=== PATIENT | female | born 1950 | race Caucasian/White ===

== ENCOUNTER 2018-09-13 13:44 | Emergency (ER) | payer MEDICARE ==
[2018-09-13] MEDS ORDERED: Lidocaine 1% with EPINEPHrine 1:100,000 50 ML MDV ONE (13:55)
[2018-09-13] MEDS ORDERED: Diphtheria,Pertussis(Acell),Tetanus Vaccine 0.5 ML SDV IM ONE (14:20)
[2018-09-13] MEDS ORDERED: Bacitracin Oint 1 GM U/D Packet TOP ONE (14:20)
[2018-09-13] MEDS ORDERED: Lidocaine 1% with EPINEPHrine 1:100,000 50 ML MDV INFILT ONE (14:33)
--- NOTE | 2018-09-13 16:13 | EDM.PDOC ---
ED HPI GENERAL MEDICAL PROBLEM - General Chief Complaint: Laceration Stated Complaint: CUT LEFT WRIST AREA Time Seen by Provider: 09/13/18 13:50 Source of Information: Reports: Patient, Old Records, RN History Limitations: Reports: No Limitations - History of Present Illness INITIAL COMMENTS - FREE TEXT/NARRATIVE: 67 yo female slipped while cutting plastic with a razor knife and stabbed her L forearm. Presents for repair of her laceration and control of the brisk associated bleeding Denies numbness of the hand initially Onset: Today Onset Date: 09/13/18 Onset Time: 14:50 Duration: Minutes: Location: Reports: Upper Extremity, Left Quality: Reports: Ache Severity: Moderate Improves with: Reports: Rest Worsens with: Reports: Movement Context: Reports: Trauma Associated Symptoms: Reports: No Other Symptoms Treatments PICK UP: Reports: Other (see below) (none) - Related Data Allergies Allergy/AdvReac Type Severity Reaction Status Date / Time erythromycin base Allergy Difficulty Verified 09/13/18 14:01 Breathing Home Meds: Home Meds Acetaminophen/HYDROcodone [Tennyson 325-5 MG] 1 tab PO Q4H PRN #14 tab 09/13/18 [Rx ] Past Medical History Musculoskeletal History: Reports: Back Pain, Chronic Psychiatric History: Reports: ADD - Past Surgical History Female Surgical History: Reports: Tubal Ligation Musculoskeletal Surgical History: Reports: Hip Replacement Social & Family History - Tobacco Use Smoking Status *Q: Current Every Day Smoker Years of Tobacco use: 50 Packs/Tins Daily: 0.5 ED ROS GENERAL - Review of Systems Review Of Systems: See Below Constitutional: Reports: No Symptoms HEENT: Reports: No Symptoms Respiratory: Reports: No Symptoms Cardiovascular: Reports: No Symptoms GI/Abdominal: Reports: No Symptoms : Reports: No Symptoms Musculoskeletal: Reports: Arm Pain (L forearm) Skin: Reports: Wound (L forearm laceration) Neurological: Reports: No Symptoms ED EXAM, SKIN/RASH Exam: See Below Exam Limited By: No Limitations General Appearance: Alert, WD/WN, No Apparent Distress Eye Exam: Bilateral Eye: Normal Inspection Peripheral Pulses: 2+: Radial (L) (ulnar artery pulse also intact), Radial (R) ( ulnar artery pulse also intact) Neurological: Alert, Oriented, CN II-XII Intact, Normal Cognition, No Motor/ Sensory Deficits Psychiatric: Normal Affect, Normal Mood Skin: Warm, Dry, Normal Color, No Rash, Wound/Incision (1.9 cm linear L forearm laceration with arteriolar bleeding) Location, Skin: Upper Extremity, Left Characteristics: Linear Associated features: Tenderness, Induration. No: Warmth, Lymphangitis Lymphatic: No Adenopathy ED SKIN PROCEDURES - Laceration/Wound Repair Left Anterior Arm Appearance: Muscle, Linear, Clean Distal NVT: No Tendon Injury, Other (arteriolar bleeder noted) Anesthetic Type: Local Local Anesthesia - Lidocaine (Xylocaine): 1% with EPI Local Anesthetic Volume: 4cc Skin Prep: Saline Exploration/Debridement/Repair: Wound Explored, No Foreign Material Found Closed with: Sutures Suture Size: 4-0 (Vicryl deep layer x 3 interrupted sutures in attempt to tie off the small artery.) # of Sutures: 3 (superficial layer with 4 sutures of simple interrupted and vertical mattress sutures with 5-0 Ethilon. ) Drain Placement: No Sterile Dressing Applied: Nurse Tetanus Status Addressed: Yes Complications: No Progress/Comments: Note: hematoma formed in forearm. Course - Vital Signs Text/Narrative:: Developed a hematoma of her forearm that did seem to stop growing after a few minutes with a pressure dressing. Last Recorded V/S: Last Vital Signs Temp 36.3 C 09/13/18 14:29 Pulse 133 H 09/13/18 14:29 Resp 24 H 09/13/18 14:29 BP 154/100 H 09/13/18 14:29 Pulse Ox 93 L 09/13/18 14:29 - Orders/Labs/Meds Orders: Active Orders 24 hr Category Date Time Status Vaccines to be Administered [RC] PER UNIT ROUTINE Care 09/13/18 14:20 Active Meds: Medications Discontinued Medications Generic Name Dose Route Start Last Admin Trade Name Jesúsq PRN Reason Stop Dose Admin Bacitracin 1 dose 09/13/18 14:20 09/13/18 14:34 Bacitracin Oint 1 Gm TOP 09/13/18 14:21 1 dose ONETIME ONE Administration Diphtheria/Tetanus/Acell Pertussis 0.5 ml 09/13/18 14:20 09/13/18 14:35 Adacel IM 09/13/18 14:21 0.5 ml .ONCE ONE Administration Lidocaine/Epinephrine Confirm 09/13/18 13:55 Xylocaine 1% With Epinephrine 1:100,000 Administered 09/13/18 13:56 Dose 50 ml .ROUTE .STK-MED ONE Lidocaine/Epinephrine 10 ml 09/13/18 14:33 09/13/18 14:35 Xylocaine 1% With Epinephrine 1:100,000 INFILT 09/13/18 14:34 10 ml ONETIME ONE Administration Departure - Departure Time of Disposition: 16:10 Disposition: Home, Self-Care 01 Condition: Fair Clinical Impression: Forearm laceration Qualifiers: Encounter type: initial encounter Laterality: left Qualified Code(s): S51.812A - Laceration without foreign body of left forearm, initial encounter - Discharge Information *PRESCRIPTION DRUG MONITORING PROGRAM REVIEWED*: No *COPY OF PRESCRIPTION DRUG MONITORING REPORT IN PATIENT ALAN: No Instructions: Wound Care, Adult Referrals: PCP,None [Primary Care Provider] - Additional Instructions: Use Tennyson or acetaminophen as needed for pain relief. Elevate and rest the L arm for 24 hrs. Keep an YUSUF on place on that arm. Starting tomorrow clean the wound twice daily with soap and water. Dry. Apply Bacitracin and a new dressing. Recheck in the clinic tomorrow. - My Orders Last 24 Hours: My Active Orders 09/13/18 14:20 Vaccines to be Administered [RC] PER UNIT ROUTINE - Assessment/Plan Last 24 Hours: My Active Orders 09/13/18 14:20 Vaccines to be Administered [RC] PER UNIT ROUTINE
== END 2018-09-13 17:02 | disposition home or self-care (01) ==
LOC: JP.ED 13:44
DX: S51.812A Laceration without foreign body of left forearm, initial encounter (principal); W26.0XXA Contact with knife, initial encounter; Z88.1 Allergy status to other antibiotic agents; Z23 Encounter for immunization; F17.200 Nicotine dependence, unspecified, uncomplicated
CPT/HCPCS: 12031; 90471; 90715; 99282-25; 99283

== ENCOUNTER 2018-11-08 18:40 | Emergency (ER) | payer MEDICARE, MEDICAID ==
--- NOTE | 2018-11-08 19:01 | EDM.PDOC ---
ED HPI GENERAL MEDICAL PROBLEM - General Chief Complaint: Lower Extremity Injury/Pain Stated Complaint: FALL VIA NORTH Time Seen by Provider: 11/08/18 18:55 Source of Information: Reports: Patient, EMS History Limitations: Reports: No Limitations - History of Present Illness INITIAL COMMENTS - FREE TEXT/NARRATIVE: Louise is a 67 year old female, presents to the ED today via EMS after falling approximately four feet from a ladder. Patient was putting in window screens when she fell. Patient states she landed on her feet then slowly fell to her side. Patient did not strike her head, denies any neck or back pain. Patient denies any hip pain, patient repots pain to bilateral knees with ambulation. Patient has not taken anything for pain. Onset: Today, Sudden - Related Data Allergies Allergy/AdvReac Type Severity Reaction Status Date / Time erythromycin base Allergy Difficulty Verified 11/08/18 18:51 Breathing Home Meds: Home Meds Fluticasone/Salmeterol [Advair 500-50] 1 ampule INH DAILY 11/08/18 [History] Ipratropium/Albuterol Sulfate [Iprat-Albut 0.5-3(2.5) mg/3 ml] 11/08/18 [ History] Methylphenidate [Ritalin] 1 tab PO DAILY 11/08/18 [History] Metoprolol Tartrate 1 tab PO DAILY 11/08/18 [History] Trandolapril [Mavik] 0.5 tab PO DAILY 11/08/18 [History] Venlafaxine [Effexor] 1 tab PO BEDTIME 11/08/18 [History] Past Medical History Musculoskeletal History: Reports: Back Pain, Chronic Psychiatric History: Reports: ADD - Past Surgical History Female Surgical History: Reports: Tubal Ligation Musculoskeletal Surgical History: Reports: Hip Replacement Review of Systems - Review of Systems Review Of Systems: ROS reveals no pertinent complaints other than HPI. ED EXAM, GENERAL - Physical Exam Exam: See Below Exam Limited By: No Limitations General Appearance: Alert, WD/WN, No Apparent Distress Nose: Normal Inspection Throat/Mouth: Normal Inspection, Normal Oropharynx Head: Atraumatic, Normocephalic Neck: Normal Inspection, Supple, Non-Tender, Full Range of Motion. No: Tender Lateral, Tender Midline Respiratory/Chest: No Respiratory Distress, Lungs Clear, Normal Breath Sounds, No Accessory Muscle Use, Chest Non-Tender Cardiovascular: Normal Peripheral Pulses, No Murmur, Tachycardia Peripheral Pulses: 2+: Dorsalis Pedis (L), Dorsalis Pedis (R) GI/Abdominal: Normal Bowel Sounds, Soft, Non-Tender Back Exam: Normal Inspection. No: Paraspinal Tenderness, Vertebral Tenderness Extremities: Normal Inspection, Normal Range of Motion, Normal Capillary Refill , Other (tenderness to bilateral knees, mild swelling kasi patellar, right worse than left, mild tenderness to mid tib/fib region, no deformity no pain with pelvic rock) Neurological: Alert, Oriented, CN II-XII Intact Psychiatric: Normal Affect, Normal Mood Skin Exam: Warm, Dry, Intact Lymphatic: No Adenopathy Course - Vital Signs Last Recorded V/S: Last Vital Signs Temp 35.2 C 11/08/18 19:12 Pulse 111 H 11/08/18 19:12 Resp 16 11/08/18 19:12 BP 135/91 H 11/08/18 19:12 Pulse Ox 97 11/08/18 19:12 Louise is a 67 year old female, presents to the ED via EMS today with c/o bilateral knee pain and right lower leg pain after falling four feet from her ladder. Please refer to HPI and focused exam. Patient arrives here hemodynamically stable, afebrile, exam reassuring with no spinous process tenderness, mild tenderness and swelling to bilateral knees and right tib/fib tenderness, no deformity or instability on exam. Patient declines any offer for pain medication on arrival. Xrays obtained of bilateral knees and right tib /fib and return negative for any acute fracture. there is a left knee effusion. Patient's family concerns about lower left back/hip region, patient states this hurt prior to fall, mildly tender, xray of pelvis obtained and also negative. Family and patient reassured. Joseph wraps applied to knees for support compression , recommend Tylenol for pain, Percocet for severe pain, narcotic safety and side effects discussed. patient instructed to return with any concerns or worsening symptoms, would like re-evaluated in clinic later this week. Patient and family agreeable to plan of care and patient discharged in stable condition. - Orders/Labs/Meds Orders: Active Orders 24 hr Category Date Time Status Tibia Fibula Rt [CR] Stat Exams 11/08/18 18:55 Taken Meds: Medications Discontinued Medications Generic Name Dose Route Start Last Admin Trade Name Freq PRN Reason Stop Dose Admin Oxycodone HCl 10 mg 11/08/18 19:54 11/08/18 20:00 Oxycodone PO 11/08/18 19:55 10 mg ONETIME ONE Administration Departure - Departure Time of Disposition: 21:00 Disposition: Home, Self-Care 01 Condition: Good Clinical Impression: Sprain of knee, Knee effusion, left Fall from ladder Qualifiers: Encounter type: initial encounter Qualified Code(s): W11.XXXA - Fall on and from ladder, initial encounter - Discharge Information Instructions: Knee Sprain, Adult, [id number], Knee Effusion Referrals: PCP,None [Primary Care Provider] - Forms: ED Department Discharge Additional Instructions: Tylenol for pain as needed. Ibuprofen for pain as needed joseph wraps for swelling and compression Percocet for severe pain. This is a narcotic so do not drive if you take this. Percocet has Tylenol in it as well, do not exceed 4,000 mg of Tylenol in a 24 hour period. - My Orders Last 24 Hours: My Active Orders 11/08/18 18:55 Tibia Fibula Rt [CR] Stat - Assessment/Plan Last 24 Hours: My Active Orders 11/08/18 18:55 Tibia Fibula Rt [CR] Stat
[2018-11-08] MEDS ORDERED: oxyCODONE 5 MG Tab PO ONE (19:54)
--- NOTE | 2018-11-08 20:09 | CRLCR ---
Indication: Injury and pain Technique: Bilateral knee AP, lateral, and sunrise 6 views Comparison: None Findings: Bones: Alignment is normal. No fractures or bone lesions. Joint spaces: Left knee joint effusion is present. Mild arthritic changes are in the knee and patellofemoral joints. Soft tissues: Unremarkable. Impression: There is a left knee joint effusion. Mild bilateral knee osteoarthritis. No other findings to explain pain or swelling. Dictated by Abdulaziz Sharma MD @ Nov 08 2018 8:06PM Signed by Dr. Abdulaziz Sharma @ Nov 08 2018 8:08PM
[2018-11-08] MEDS ORDERED: Ondansetron 4 MG Tab.DIS PO ONE (20:14)
[2018-11-08] MEDS ORDERED: Ondansetron 4 MG Tab.DIS ONE (20:15)
--- NOTE | 2018-11-08 20:15 | CRLCR ---
Indication: Injury and pain Technique: Right tibia and fibula 2 views Comparison: None Findings/Impression: Bones: An acute vertically oriented fracture in the proximal right tibia may extend to the knee joint surface. No other fracture evident. Joint spaces: Unremarkable. Soft tissues: Unremarkable. Dictated by Abdulaziz Sharma MD @ 11/08/2018 8:12:46 PM Dictated by: Abdulaziz Sharma MD @ 11/08/2018 20:12:58 (Electronically Signed)
--- NOTE | 2018-11-08 20:55 | CRLCR ---
HISTORY: Left pelvic pain status post fall. TECHNIQUE: One view of the pelvis. COMPARISON: No prior. FINDINGS: Intact bilateral total hip replacements. There is no acute fracture. No evidence of hardware loosening appreciated. Minor arthrosis of the pubic symphysis. Vascular calcifications. IMPRESSION: 1. Intact bilateral total hip replacements. 2. No acute fracture. Dictated by Rahul Hernandez MD @ 11/08/2018 8:53:40 PM Dictated by: Rahul Hernandez MD @ 11/08/2018 20:53:43 (Electronically Signed)
== END 2018-11-08 21:16 | disposition home or self-care (01) ==
LOC: JP.ED 18:40
DX: S83.92XA Sprain of unspecified site of left knee, initial encounter (principal); W11.XXXA Fall on and from ladder, initial encounter; Z88.1 Allergy status to other antibiotic agents
CPT/HCPCS: 72170; 73562; 73590; 99283; A9270

== ENCOUNTER 2018-11-20 06:03 | Day surgery (SDC) | payer MEDICARE, MEDICAID ==
[2018-11-20] MEDS ORDERED: Nozin Nasal Sanitizer NASBOTH ONE (06:30)
[2018-11-20] MEDS: Lactated Ringers 1,000 ML IV SCH ×3 (06:57→15:39)
[2018-11-20] MEDS ORDERED: Bupivacaine 0.5% 30 ML SDV ONE (07:08)
[2018-11-20] MEDS ORDERED: Albuterol/Ipratropium 3.0-0.5 MG/3 ML Neb Soln NEB ONE (07:14)
[2018-11-20] MEDS ORDERED: fentaNYL 100 MCG/2 ML SDV ONE (07:21)
[2018-11-20] MEDS ORDERED: Propofol 200 MG/20 ML SDV ONE (07:22)
[2018-11-20] MEDS ORDERED: Midazolam 1 MG/ML 2 ML SDV ONE (07:22)
[2018-11-20] MEDS ORDERED: ceFAZolin 1 GM in Premix Bag 1 BAG IV ONE (07:30)
[2018-11-20] MEDS ORDERED: Docusate Sodium 100 MG Cap PO PRN (10:03)
[2018-11-20] MEDS ORDERED: Acetaminophen/oxyCODONE 325-5 MG Tab PO PRN (10:09)
[2018-11-20] MEDS ORDERED: Morphine 2 MG/ML Syringe IVPUSH PRN (10:11)
--- NOTE | 2018-11-20 11:17 | CRLCT ---
INDICATION: Pain after injury. Assess fracture. COMPARISON: Plain film 16 November 2018. TECHNIQUE: Multi detector imaging left knee with axial coronal and sagittal reformats. FINDINGS: Diffuse osteopenia. Moderately large knee lipohemarthrosis. Subtle impaction fracture of the posterior half of the lateral tibial plateau with slight lateral downsloping. Subtle 1 mm or less diastasis across the posterior margin of the fracture. Fracture extends to the posterior margin of the lateral spine with apparent minimal comminution. Linear nondisplaced fracture extends through the mid to medial posterior tibial cortex, extending approximately 3 cm below the joint. Fracture does not appear to enter the proximal tibia fibular joint. No fracture in the femur. Small presumed mineralized fabella. Mild atherosclerotic vascular calcification popliteal artery. IMPRESSION: Minimal lateral downsloping impaction fracture posterior lateral tibial plateau. Osteopenia. Please note that all CT scans at this facility use dose modulation, iterative reconstruction, and/or weight-based dosing when appropriate to reduce radiation dose to as low as reasonably achievable. Dictated by Manuel Roper MD @ Nov 20 2018 11:12AM Signed by Dr. Manuel Roper @ Nov 20 2018 11:16AM
[2018-11-20] MEDS: traMADol 50 MG Tab PO PRN ×2 (15:15→18:52)
[2018-11-20] MEDS: Acetaminophen 325 MG Tab PO PRN ×2 (17:11→20:41)
--- NOTE | 2018-11-20 18:41 | PCM.CONS ---
H&P History of Present Illness - General Date of Service: 11/20/18 Admit Problem/Dx: Admission Diagnosis/Problem Admission Diagnosis/Problem Tibial plateau fracture, right Source of Information: Patient, Provider, RN Notes Reviewed History Limitations: Reports: No Limitations - History of Present Illness Initial Comments - Free Text/Narative: Ms. Randall is a 67-year-old woman who I been asked to see by Dr. Bautista for a hospitalist consult and assistance in medical management during the postoperative period. Earlier today she underwent surgical repair of a right tibial plateau fracture. She has been stable during the initial postoperative period. Denies chest pain or pressure, increased shortness of breath, nausea and vomiting. She does have a known history of COPD and does not use oxygen at home. She continues to smoke approximately one half pack of cigarettes per day. Right Knee Pain Score (Numeric/FACES): 5 - Related Data Allergies/Adverse Reactions: Allergies Allergy/AdvReac Type Severity Reaction Status Date / Time erythromycin base Allergy Difficulty Verified 11/08/18 18:51 Breathing Home Medications: Home Meds Fluticasone/Salmeterol [Advair 500-50] 1 ampule INH BID 11/08/18 [History] Ipratropium/Albuterol Sulfate [Iprat-Albut 0.5-3(2.5) mg/3 ml] 3 ml INH DAILY [History] Metoprolol Tartrate 1 tab PO BID 11/08/18 [History] Trandolapril [Mavik] 2 mg PO DAILY 11/08/18 [History] Venlafaxine [Effexor] 75 mg PO BEDTIME 11/08/18 [History] carBAMazepine [Carbamazepine ER] 400 mg PO BID PRN 11/20/18 [History] Past Medical History HEENT History: Reports: Impaired Vision Other HEENT History: wears glasses Cardiovascular History: Reports: Hypertension, SOB on Exertion Respiratory History: Reports: COPD Gastrointestinal History: Reports: Colon Polyp Genitourinary History: Reports: None [employer]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 [employer] History: Reports: Musculoskeletal History: Reports: Arthritis, Back Pain, Chronic, Fracture, Other (See Below) Other Musculoskeletal History: right tibial platue FX Neurological History: Reports: None, Other (See Below) Other Neuro History: trigeminal neuralgia Psychiatric History: Reports: ADD Endocrine/Metabolic History: Reports: None Hematologic History: Reports: Blood Transfusion(s) Immunologic History: Reports: None Oncologic (Cancer) History: Reports: None Dermatologic History: Reports: Psoriasis - Infectious Disease History Infectious Disease History: Reports: Chicken Pox, Measles, Meningitis, Mumps, Rubella - Past Surgical History Head Surgeries/Procedures: Reports: None HEENT Surgical History: Reports: None Cardiovascular Surgical History: Reports: None Respiratory Surgical History: Reports: None GI Surgical History: Reports: Colonoscopy, Polypectomy Female Surgical History: Reports: Tubal Ligation Neurological Surgical History: Reports: Lumbar Spine Musculoskeletal Surgical History: Reports: None, Hip Replacement Dermatological Surgical History: Reports: None Social & Family History - Family History Musculoskeletal: Reports: Arthritis, Back pain, Chronic Dermatologic: Reports: Psoriasis Oncologic: Reports: Breast, Other (See Below) Other Oncologic Family History: stomach - Tobacco Use Smoking Status *Q: Current Every Day Smoker Years of Tobacco use: 55 Packs/Tins Daily: 0.5 - Caffeine Use Caffeine Use: Reports: Coffee - Recreational Drug Use Recreational Drug Use: No H&P Review of Systems - Review of Systems: Review Of Systems: See Below Pulmonary: Reports: Shortness of Breath. Denies: Wheezing, Pleuritic Chest Pain , Cough, Sputum, Hemoptysis Cardiovascular: Reports: Dyspnea on Exertion. Denies: Chest Pain, Palpitations , Orthopnea, PND, Edema, Lightheadedness Gastrointestinal: Reports: No Symptoms Musculoskeletal: Reports: Other (Right leg pain) Exam - Exam Exam: See Below - Vital Signs Vital Signs: Last Vital Signs Temp 97.2 F 11/20/18 11:45 Pulse 93 11/20/18 12:15 Resp 16 11/20/18 12:15 BP 148/74 H 11/20/18 12:15 Pulse Ox 93 L 11/20/18 12:15 Weight: 105 lb - Exam General: Alert, Oriented, Cooperative, Mild Distress Neck: Supple, Trachea Midline, +2 Carotid Pulse wo Bruit Lungs: Clear to Auscultation, Normal Respiratory Effort, Decreased Breath Sounds Cardiovascular: Regular Rate, Regular Rhythm, Normal S1, Normal S2, Other ( Distant heart sounds). No: Systolic Murmur, Diastolic Murmur GI/Abdominal Exam: Soft, Non-Tender, No Organomegaly, No Distention Extremities: No Pedal Edema Consult PN Assessment/Plan Procedures: Procedures COMP SCREEN MAMMOGRAM ADD-ON (12/28/15) COMPLETE CBC AUTOMATED (08/01/17) COMPUTER DX MAMMOGRAM ADD-ON (01/02/16) CT LOWER EXTREMITY W/O DYE (11/16/18) EMERGENCY DEPT VISIT (11/08/18) EMERGENCY DEPT VISIT (09/13/18) EMERGENCY DEPT VISIT (09/13/18) IMMUNIZATION ADMIN (09/13/18) INTMD RPR S/A/T/EXT 2.5 CM/< (09/13/18) ROUTINE VENIPUNCTURE (08/01/17) SCR MAMMO BI INCL CAD (02/10/18) TDAP VACCINE 7 YRS/> IM (09/13/18) X-RAY EXAM OF KNEE 3 (11/08/18) X-RAY EXAM OF LOWER LEG (11/08/18) X-RAY EXAM OF PELVIS (11/08/18) Problem List Initiated/Reviewed/Updated: Yes My Orders Last 24 Hours: My Active Orders 11/20/18 22:00 Albuterol/Ipratropium [DuoNeb 3.0-0.5 MG/3 ML] 3 ml INH QID Plan: ASSESSMENT AND RECOMMENDATIONS STATUS POST RIGHT TIBIAL PLATEAU FRACTURE REPAIR -Postoperative care per Dr. Bautista COPD-respiratory status is stable from baseline. She currently is using supplemental oxygen, typically at home does not use oxygen but unclear as to whether she may require it. -Supplemental oxygen as needed -Incentive spirometry every hour -DuoNeb's 4 times daily -Continue Advair Diskus Requesting Provider: ALYSSA Date Consult Requested: 11/20/18 Reason for Consult: Postoperative medical management Patient History Reviewed: Yes
[2018-11-20] MEDS: Nicotine 14 MG/24 Hr Patch TRDERM SCH (20:39)
[2018-11-20] MEDS: Albuterol/Ipratropium 3.0-0.5 MG/3 ML Neb Soln INH SCH (20:41)
[2018-11-20] MEDS: Metoprolol Tartrate 50 MG Tab PO SCH (20:44)
[2018-11-20] MEDS: ADVAIR INH SCH (20:56)
[2018-11-20] MEDS: Ibuprofen 600 MG Tab PO PRN (20:58)
[2018-11-20] MEDS ORDERED: Venlafaxine 75 MG Tab PO SCH (21:00)
[2018-11-21] MEDS: Acetaminophen 325 MG Tab PO PRN ×3 (00:20→10:50)
[2018-11-21] MEDS: Lactated Ringers 1,000 ML IV SCH (03:30)
[2018-11-21] MEDS: Ibuprofen 600 MG Tab PO PRN (04:50)
[2018-11-21] MEDS ORDERED: Albuterol/Ipratropium 3.0-0.5 MG/3 ML Neb Soln INH SCH (07:00)
[2018-11-21] MEDS: ADVAIR INH SCH (07:15)
[2018-11-21] MEDS: Albuterol/Ipratropium 3.0-0.5 MG/3 ML Neb Soln INH SCH ×3 (07:15→14:50)
[2018-11-21] MEDS ORDERED: Methylphenidate 10 MG Tab PO SCH ×2 (08:00→12:00)
[2018-11-21] MEDS ORDERED: METHYLPHENIDATE PO SCH (09:00)
[2018-11-21] MEDS ORDERED: FLUTICASONE INH SCH (09:00)
[2018-11-21] MEDS ORDERED: Metoprolol Tartrate 50 MG Tab PO SCH (09:00)
[2018-11-21] MEDS ORDERED: TRANDOLAPRIL PO SCH (09:00)
[2018-11-21] MEDS ORDERED: SALMETEROL INH SCH (09:00)
[2018-11-21] MEDS: Nicotine 14 MG/24 Hr Patch TRDERM SCH (09:25)
[2018-11-21] MEDS: Metoprolol Tartrate 50 MG Tab PO SCH (09:27)
[2018-11-21] MEDS ORDERED: Ibuprofen 600 MG Tab PO PRN (10:56)
--- NOTE | 2018-11-21 14:03 | PCM.CONSN ---
- General Info Date of Service: 11/21/18 Subjective Update: Ms. Randall is been stable since surgery yesterday and denies any exacerbation of her COPD. Level of dyspnea has been stable and oxygen saturations have been within desired range on supplemental oxygen. Functional Status: Reports: Tolerating Diet, Urinating - Review of Systems General: Denies: Fever, Chills Pulmonary: Reports: Shortness of Breath, Wheezing. Denies: Pleuritic Chest Pain , Cough, Sputum, Hemoptysis Cardiovascular: Reports: Dyspnea on Exertion. Denies: Chest Pain, Palpitations , Orthopnea, PND, Edema, Lightheadedness Gastrointestinal: Reports: No Symptoms Skin: Reports: Other (Surgical dressing in place right leg) - Patient Data Vitals - Most Recent: Last Vital Signs Temp 95.7 F 11/21/18 11:55 Pulse 77 11/21/18 11:55 Resp 18 11/21/18 11:55 BP 166/76 H 11/21/18 11:55 Pulse Ox 97 11/21/18 11:55 Weight - Most Recent: 105 lb I&O - Last 24 Hours: Intake & Output 11/20/18 11/21/18 11/21/18 22:59 06:59 14:59 Intake Total 480 1696 Output Total 1300 Balance 480 396 Med Orders - Current: Current Medications Acetaminophen (Tylenol) 650 mg PO Q4H PRN PRN Reason: Pain/Fever Last Admin: 11/21/18 10:50 Dose: 650 mg Albuterol/Ipratropium (Duoneb 3.0-0.5 Mg/3 Ml) 3 ml INH QIDRT [facility] Last Admin: 11/21/18 07:15 Dose: 3 ml Docusate Sodium (Colace) 100 mg PO BID PRN PRN Reason: Constipation Lactated Ringer's (Ringers, Lactated) 1,000 mls @ 75 mls/hr IV ASDIRECTED [facility] Last Admin: 11/21/18 03:30 Dose: 75 mls/hr Ibuprofen (Motrin) 600 mg PO Q6H PRN PRN Reason: Pain Last Admin: 11/21/18 11:04 Dose: 600 mg Methylphenidate HCl (Ritalin) 10 mg PO DAILY@0800 [facility] Last Admin: 11/21/18 09:23 Dose: Not Given Methylphenidate HCl (Ritalin) 20 mg PO Q24H [facility] Metoprolol Tartrate (Lopressor) 50 mg PO BID [facility] Last Admin: 11/21/18 09:27 Dose: 50 mg Morphine Sulfate (Morphine) 2 mg IVPUSH Q1H PRN PRN Reason: Pain (severe 7-10) Last Admin: 11/20/18 13:36 Dose: 2 mg Nicotine (Habitrol) 14 mg TRDERM DAILY [facility] Last Admin: 11/21/18 09:25 Dose: 14 mg Non-Formulary Medication (Trandolapril [Mavik]) 0.5 tab PO DAILY [facility] Oxycodone/Acetaminophen (Percocet 325-5 Mg) 1 - 2 tab PO Q6H PRN PRN Reason: Pain (moderate 4-6) Advair Diskus 500/50 (Inhaler (Ptom)) 0 each INH BIDRT [facility] Last Admin: 11/21/18 07:15 Dose: 1 each Tramadol HCl (Ultram) 50 mg PO Q4H PRN PRN Reason: Pain (mild 1-3) Last Admin: 11/20/18 18:52 Dose: 50 mg Venlafaxine HCl (Effexor) 75 mg PO BEDTIME [facility] Last Admin: 11/20/18 20:45 Dose: 75 mg Discontinued Medications Albuterol/Ipratropium (Duoneb 3.0-0.5 Mg/3 Ml) 3 ml NEB ONETIME ONE Stop: 11/20/18 07:15 Last Admin: 11/20/18 07:21 Dose: 3 ml Albuterol/Ipratropium (Duoneb 3.0-0.5 Mg/3 Ml) 3 ml INH DAILYRT [facility] Bandage/Support Products ( Nasal Language [employer] Chair) 1 applic NASBOTH ONETIME ONE Stop: 11/20/18 06:31 Last Admin: 11/20/18 06:49 Dose: 1 applic Bupivacaine HCl (Marcaine 0.5%) Confirm Administered Dose 30 ml .ROUTE .STK-MED ONE Stop: 11/20/18 07:09 Last Admin: 11/20/18 09:45 Dose: 30 ml Fentanyl (Sublimaze) Confirm Administered Dose 100 mcg .ROUTE .STK-MED ONE Stop: 11/20/18 07:22 Cefazolin Sodium/Dextrose 1 gm (/ Premix) 50 mls @ 100 mls/hr IV ONETIME ONE Stop: 11/20/18 07:59 Last Admin: 11/20/18 08:02 Dose: 100 mls/hr Ibuprofen (Motrin) 600 mg PO Q8H PRN PRN Reason: Pain Last Admin: 11/21/18 04:50 Dose: 600 mg Metoprolol Tartrate (Lopressor) 50 mg PO DAILY [facility] Midazolam HCl (Versed 1 Mg/Ml) Confirm Administered Dose 2 mg .ROUTE .STK-MED ONE Stop: 11/20/18 07:23 Propofol (Diprivan 20 Ml) Confirm Administered Dose 200 mg .ROUTE .STK-MED ONE Stop: 11/20/18 07:23 - Exam Quality Assessment: Supplemental Oxygen, DVT Prophylaxis General: Alert, Oriented, Cooperative, No Acute Distress Lungs: Clear to Auscultation, Normal Respiratory Effort, Decreased Breath Sounds , Wheezing. No: Rales, Rhonchi, Rub Cardiovascular: Regular Rate, Regular Rhythm, No Murmurs GI/Abdominal Exam: Soft, Non-Tender, No Organomegaly, No Distention Extremities: Other (Surgical dressing in place right leg) Consult PN Assessment/Plan Procedures: Procedures COMP SCREEN MAMMOGRAM ADD-ON (12/28/15) COMPLETE CBC AUTOMATED (08/01/17) COMPUTER DX MAMMOGRAM ADD-ON (01/02/16) CT LOWER EXTREMITY W/O DYE (11/16/18) EMERGENCY DEPT VISIT (11/08/18) EMERGENCY DEPT VISIT (09/13/18) EMERGENCY DEPT VISIT (09/13/18) IMMUNIZATION ADMIN (09/13/18) INTMD RPR S/A/T/EXT 2.5 CM/< (09/13/18) ROUTINE VENIPUNCTURE (08/01/17) SCR MAMMO BI INCL CAD (02/10/18) TDAP VACCINE 7 YRS/> IM (09/13/18) X-RAY EXAM OF KNEE 3 (11/08/18) X-RAY EXAM OF LOWER LEG (11/08/18) X-RAY EXAM OF PELVIS (11/08/18) Problem List Initiated/Reviewed/Updated: Yes My Orders Last 24 Hours: My Active Orders 11/20/18 19:00 Nicotine [Habitrol] 14 mg TRDERM DAILY 11/20/18 21:00 Albuterol/Ipratropium [DuoNeb 3.0-0.5 MG/3 ML] 3 ml INH QIDRT 11/21/18 10:56 Ibuprofen [Motrin] 600 mg PO Q6H PRN Plan: ASSESSMENT AND RECOMMENDATIONS STATUS POST RIGHT TIBIAL PLATEAU FRACTURE REPAIR -Postoperative care per Dr. Bautista COPD-respiratory status is stable from baseline. She currently is using supplemental oxygen, typically at home does not use oxygen but unclear as to whether she may require it. -Supplemental oxygen as needed -Incentive spirometry every hour -StanoNeb's 4 times daily -Continue Advair Diskus
[2018-11-21] MEDS ORDERED: TRANDOLAPRIL 4 MG PO SCH (14:45)
--- NOTE | 2018-11-27 15:02 | OR ---
DATE OF PROCEDURE: 11/20/2018 PREOPERATIVE DIAGNOSIS: Depressed lateral tibial plateau fracture, right knee. POSTOPERATIVE DIAGNOSIS: Depressed lateral tibial plateau fracture, right knee. PROCEDURE: Arthroscopically-assisted open reduction and internal fixation, right lateral tibial plateau. ANESTHESIA: Spinal with sedation. INDICATIONS: Louise is a 67-year-old female who sustained a fall from a step- ladder resulting in a depressed lateral tibial plateau fracture. She actually sustained a minimally-depressed left lateral tibial plateau fracture as well. X-ray and CT scan of the right knee revealed articular fragment depressed approximately 6 to 8 mm. She now presents for arthroscopically-assisted reduction, bone grafting, and percutaneous screw fixation. Risks, benefits, and potential complications of the procedure were discussed with the patient and her family. DESCRIPTION OF PROCEDURE: After adequate anesthesia was obtained, the patient was placed supine with a tourniquet about the right upper leg. Right leg was then prepped and draped in a sterile fashion. The leg was exsanguinated and tourniquet inflated to 250 mmHg. Standard inferior, medial and lateral portals were established, and the scope was introduced. A large hemarthrosis was present. This was cleared and flushing with irrigation fluid. The knee was then inspected. The patellofemoral joint revealed minimal degenerative change with some mild softening. Medial compartment showed intact meniscus and articular cartilage in the tibial plateau and femoral condyle. Lateral compartment revealed some mild scuffing on the femoral condyle and a depressed articular fragment in the central portion of the plateau extending posteriorly. Shaver was used to debride the hematoma from the fracture. Meniscus was intact. Steen elevator was then used to free up the fragment. A small incision was then made distal to the knee joint over the lateral metaphysis. This was carried down to the subcutaneous tissues. A small cortical window was then made with an osteotome in the bone of the anterior metaphysis. A bone tamp was placed through the window and position confirmed using fluoroscopy. Visualizing the fracture fragment through the scope, tamp was used to elevate the fragment level with the joint surface. Some mild fragmentation of the articular cartilage was noted along the fracture line, but no major gap was present. Once the fragment had been elevated back up to the joint line, crushed cancellous allograft was packed into the bone tunnel. Maintenance of reduction was confirmed on fluoroscopy as well as by direct visualization with the scope. Working through the posterior aspect of the incision, a guidepin was then placed just beneath the joint line across the plateau and confirmed with fluoroscopy. A second guidepin was placed just posterior to this through a small stab incision. Position of both was confirmed. Maintenance of reduction of the fragment was confirmed with the scope prior to placement of the screws. The guidepins were measured and long threaded cannulated screws were then placed over the guidepin with washers. Compression was obtained across the fracture site and reduction of the fracture was confirmed arthroscopically. The guidepins were removed. Final position was confirmed with fluoroscopy. The joint was inspected once again through the scope and no other abnormalities were identified. Incision was then closed with 2-0 Vicryl and a running 3-0 Monocryl. Port sites were closed with Monocryl. A small stab incision for the percutaneous screw was also closed with Monocryl. Steri-Strips were then applied. Light compressive dressing was then placed after infiltrating incisions with 0.5% Marcaine. The patient tolerated the procedure very well. There were no complications. She was taken from the operating room in a stable condition. Andrea Bautista MD /[id number] PRANAY
--- NOTE | 2019-01-15 13:02 | PCM.DCSUM1 ---
Discharge Summary - Hospital Course Free Text/Narrative:: 68 year ols female with history of a fall resulting in bilateral tibial plateau fractures. The right lateral plateau is depressed and she is admitted for reduction and fixation. she also has a minimally displaced left plateau fracture being treated nonoperatively. Diagnosis: Stroke: No - Discharge Data Discharge Date: 11/21/18 Discharge Disposition: Home, W Home Health Agency 06 Condition: Good - Discharge Diagnosis/Problem(s) (1) Fall from ladder SNOMED Code(s): 54471672 ICD Code: W11.XXXA - FALL ON AND FROM LADDER, INITIAL ENCOUNTER Status: Acute Qualifiers: Encounter type: initial encounter Qualified Code(s): W11.XXXA - Fall on and from ladder, initial encounter (2) Closed fracture of lateral portion of left tibial plateau SNOMED Code(s): 495581513 ICD Code: S82.122A - DISP FX OF LATERAL CONDYLE OF LEFT TIBIA, INIT FOR CLOS FX Status: Acute Qualifiers: Encounter type: subsequent encounter Fracture healing: with routine healing Qualified Code(s): S82.122D - Displaced fracture of lateral condyle of left tibia, subsequent encounter for closed fracture with routine healing (3) Closed fracture of lateral portion of right tibial plateau SNOMED Code(s): 953180662 ICD Code: S82.121A - DISP FX OF LATERAL CONDYLE OF RIGHT TIBIA, INIT FOR CLOS FX Status: Acute Qualifiers: Encounter type: subsequent encounter Fracture healing: with routine healing Qualified Code(s): S82.121D - Displaced fracture of lateral condyle of right tibia, subsequent encounter for closed fracture with routine healing - Patient Summary/Data Operative Procedure(s) Performed: Arthroscoplically assited open reduction and percutaneous fixation of right lateral tibial plateau Consults: Consultations 11/20/18 10:03 PT Evaluation and Treatment [CONS] Routine Please Evaluate and Treat. PT Reason for Consult: Ambulation Pending Discharge: Yes Discharge Disposition: Home w Home Health Special Instructions: TTWB on right , Partial weight bearing on left This query below is only for informational purposes and is not editable. 11/20/18 10:11 Consult to Occupational Therapy [OT Evaluation and Treatment] [CONS] Routine Please Evaluate and Treat. OT Reason for Consult: ADL's Pending Discharge: Yes Discharge Disposition: Home w Home Health Special Instructions: ADLs and adaptive devices This query below is only for informational purposes and is not editable. Admission Diagnosis/Problem: Tibial plateau fracture, right 11/20/18 10:13 Consult to Physician [CONS] Routine Consulting Provider: Julian Kenney Call Completed to Consulting Physician: Yes Reason for Consult: help manage COPD, HTN Date Notified: 11/20/18 Hospital Course: Patient was admitted and underwent surgery to right knee. She tolerated this well and pain was controlled postoperatively. She was seen by PT and instructed on transfers and non-weight bearing on the right. She was comfortable with this and arrangements were made for discharge. - Patient Instructions Diet: Usual Diet as Tolerated Activity: Apply Ice Driving: Do Not Drive Showering/Bathing: September Shower Notify Provider of: Fever, Increased Pain, Swelling and Redness, Drainage, Nausea and/or Vomiting - Discharge Plan *PRESCRIPTION DRUG MONITORING PROGRAM REVIEWED*: No *COPY OF PRESCRIPTION DRUG MONITORING REPORT IN PATIENT ALAN: No Home Medications: Home Meds Fluticasone/Salmeterol [Advair 500-50] 1 ampule INH BID 11/08/18 [History] Ipratropium/Albuterol Sulfate [Iprat-Albut 0.5-3(2.5) mg/3 ml] 3 ml INH DAILY [History] Metoprolol Tartrate 1 tab PO BID 11/08/18 [History] Trandolapril [Mavik] 2 mg PO DAILY 11/08/18 [History] Venlafaxine [Effexor] 75 mg PO BEDTIME 11/08/18 [History] carBAMazepine [Carbamazepine ER] 400 mg PO BID PRN 11/20/18 [History] Other Amb Orders: OT Evaluation and Treatment [CONS] Time Frame: 2 Days, Location: None Selected PT Evaluation and Treatment [CONS] Time Frame: 2 Days, Location: None Selected Oxygen Therapy Mode: Room Air Patient Handouts: Displaced Tibial Plateau Fracture Referrals: Andrea Bautista MD [Physician] - - Discharge Summary/Plan Comment DC Time >30 min.: No - Patient Data Vitals - Most Recent: Last Vital Signs Temp 35.4 C 11/21/18 11:55 Pulse 77 11/21/18 11:55 Resp 16 11/21/18 15:00 BP 166/76 H 11/21/18 11:55 Pulse Ox 94 L 11/21/18 15:00 Weight - Most Recent: 47.627 kg Med Orders - Current: Current Medications Discontinued Medications Acetaminophen (Tylenol) 650 mg PO Q4H PRN PRN Reason: Pain/Fever Last Admin: 11/21/18 10:50 Dose: 650 mg Albuterol/Ipratropium (Duoneb 3.0-0.5 Mg/3 Ml) 3 ml NEB ONETIME ONE Stop: 11/20/18 07:15 Last Admin: 11/20/18 07:21 Dose: 3 ml Albuterol/Ipratropium (Duoneb 3.0-0.5 Mg/3 Ml) 3 ml INH DAILYRT [facility] Albuterol/Ipratropium (Duoneb 3.0-0.5 Mg/3 Ml) 3 ml INH QIDRT [facility] Last Admin: 11/21/18 14:50 Dose: Not Given Bandage/Support Products ( Nasal Wheel Truing Machine Tender) 1 applic NASBOTH ONETIME ONE Stop: 11/20/18 06:31 Last Admin: 11/20/18 06:49 Dose: 1 applic Bupivacaine HCl (Marcaine 0.5%) Confirm Administered Dose 30 ml .ROUTE .STK-MED ONE Stop: 11/20/18 07:09 Last Admin: 11/20/18 09:45 Dose: 30 ml Docusate Sodium (Colace) 100 mg PO BID PRN PRN Reason: Constipation Fentanyl (Sublimaze) Confirm Administered Dose 100 mcg .ROUTE .STK-MED ONE Stop: 11/20/18 07:22 Cefazolin Sodium/Dextrose 1 gm (/ Premix) 50 mls @ 100 mls/hr IV ONETIME ONE Stop: 11/20/18 07:59 Last Admin: 11/20/18 08:02 Dose: 100 mls/hr Lactated Ringer's (Ringers, Lactated) 1,000 mls @ 75 mls/hr IV ASDIRECTED [facility] Last Admin: 11/21/18 03:30 Dose: 75 mls/hr Ibuprofen (Motrin) 600 mg PO Q8H PRN PRN Reason: Pain Last Admin: 11/21/18 04:50 Dose: 600 mg Ibuprofen (Motrin) 600 mg PO Q6H PRN PRN Reason: Pain Last Admin: 11/21/18 11:04 Dose: 600 mg Methylphenidate HCl (Ritalin) 10 mg PO DAILY@0800 [facility] Last Admin: 11/21/18 09:23 Dose: Not Given Methylphenidate HCl (Ritalin) 20 mg PO Q24H [facility] Last Admin: 11/21/18 14:49 Dose: Not Given Metoprolol Tartrate (Lopressor) 50 mg PO DAILY [facility] Metoprolol Tartrate (Lopressor) 50 mg PO BID [facility] Last Admin: 11/21/18 09:27 Dose: 50 mg Midazolam HCl (Versed 1 Mg/Ml) Confirm Administered Dose 2 mg .ROUTE .STK-MED ONE Stop: 11/20/18 07:23 Morphine Sulfate (Morphine) 2 mg IVPUSH Q1H PRN PRN Reason: Pain (severe 7-10) Last Admin: 11/20/18 13:36 Dose: 2 mg Nicotine (Habitrol) 14 mg TRDERM DAILY [facility] Last Admin: 11/21/18 09:25 Dose: 14 mg Oxycodone/Acetaminophen (Percocet 325-5 Mg) 1 - 2 tab PO Q6H PRN PRN Reason: Pain (moderate 4-6) Advair Diskus 500/50 (Inhaler (Ptom)) 0 each INH BIDRT [facility] Last Admin: 11/21/18 07:15 Dose: 1 each Mavik 4mg Tab (Ptom) 0 each PO DAILY [facility] Last Admin: 11/21/18 14:50 Dose: Not Given Propofol (Diprivan 20 Ml) Confirm Administered Dose 200 mg .ROUTE .STK-MED ONE Stop: 11/20/18 07:23 Tramadol HCl (Ultram) 50 mg PO Q4H PRN PRN Reason: Pain (mild 1-3) Last Admin: 11/20/18 18:52 Dose: 50 mg Venlafaxine HCl (Effexor) 75 mg PO BEDTIME [facility] Last Admin: 11/20/18 20:45 Dose: 75 mg
== END 2018-11-21 15:39 | disposition home health service (06) ==
LOC: JP.SDS 06:03 → JP.MS 10:03 → JP.SDS 11-21 15:39
PROVIDERS: ATTEND Specialist
DX: S82.141A Displaced bicondylar fracture of right tibia, initial encounter for closed fracture (principal); I10 Essential (primary) hypertension; J44.9 Chronic obstructive pulmonary disease, unspecified; F98.8 Other specified behavioral and emotional disorders with onset usually occurring in childhood and adolescence; F17.210 Nicotine dependence, cigarettes, uncomplicated; W11.XXXA Fall on and from ladder, initial encounter; Z88.1 Allergy status to other antibiotic agents; Z79.51 Long term (current) use of inhaled steroids; Z79.899 Other long term (current) drug therapy
CPT/HCPCS: 27535; 73700; 76000; 94640; 97110; 97162; 97535; A9270; C1713; J0690; J2250; J2270; J2704; J3010; J3490; J7120; 29855; 99202; 99211; J7620-GY

== ENCOUNTER 2019-08-02 05:57 | Emergency (ER) | payer MEDICARE, MEDICAID ==
--- NOTE | 2019-08-02 06:34 | EDM.PDOC ---
ED HPI GENERAL MEDICAL PROBLEM - General Chief Complaint: Neurological Problem Stated Complaint: MEDICAL [facility]IA [facility] Time Seen by Provider: 08/02/19 06:29 Source of Information: Reports: EMS, Family, Other (pt was found unresponsive this am with mouning resperations. Pt was last seem well last evening although family thought she was a little off and not as animated as usual. She did not complain of a headache. ) History Limitations: Reports: No Limitations - History of Present Illness INITIAL COMMENTS - FREE TEXT/NARRATIVE: pt arrived unresponsive. Onset: Today, Other (pt was last well last pm. ) Duration: Hour(s): Location: Reports: Head, Generalized Associated Symptoms: Reports: Other (pt is unresponsive. 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: See EMS Report - Related Data Allergies Allergy/AdvReac Type Severity Reaction Status Date / Time erythromycin base Allergy Difficulty Verified 08/02/19 06:40 Breathing hydrocodone Allergy Swelling Verified 08/02/19 06:40 oxycodone Allergy Swelling Verified 08/02/19 06:40 Home Meds: Home Meds Fluticasone/Salmeterol [Advair 500-50] 1 ampule INH BID 11/08/18 [History] Ipratropium/Albuterol Sulfate [Iprat-Albut 0.5-3(2.5) mg/3 ml] 3 ml INH DAILY [History] Metoprolol Tartrate 1 tab PO BID 11/08/18 [History] Venlafaxine [Effexor] 75 mg PO BEDTIME 11/08/18 [History] trandolapriL [Mavik] 2 mg PO DAILY 11/08/18 [History] carBAMazepine [Carbamazepine ER] 400 mg PO BID PRN 11/20/18 [History] Acetaminophen/Caffeine [Excedrin Tension Headache] 1 - 2 tab PO Q8HR PRN [History] Past Medical History HEENT History: Reports: Impaired Vision Other HEENT History: wears glasses Cardiovascular History: Reports: Hypertension, SOB on Exertion Respiratory History: Reports: COPD Gastrointestinal History: Reports: Colon Polyp Genitourinary History: Reports: None BASKETBALL SCOUT History: Reports: Musculoskeletal History: Reports: Arthritis, Back Pain, Chronic, Fracture, Other (See Below) Other Musculoskeletal History: ORIF right tibial plat 11/20/18 Neurological History: Reports: Other (See Below) Other Neuro History: trigeminal neuralgia Psychiatric History: Reports: ADD Endocrine/Metabolic History: Reports: None Hematologic History: Reports: Blood Transfusion(s) Immunologic History: Reports: None Oncologic (Cancer) History: Reports: None Dermatologic History: Reports: Psoriasis - Infectious Disease History Infectious Disease History: Reports: Chicken Pox, Measles, Meningitis, Mumps, Rubella - Past Surgical History Head Surgeries/Procedures: Reports: None GI Surgical History: Reports: Colonoscopy, Polypectomy Female Surgical History: Reports: Tubal Ligation Neurological Surgical History: Reports: Lumbar Spine Musculoskeletal Surgical History: Reports: Hip Replacement, Other (See Below) Other Musculoskeletal Surgeries/Procedures:: orif right tib palt FX Social & Family History - Family History Family Medical History: Noncontributory Musculoskeletal: Reports: Arthritis, Back pain, Chronic Dermatologic: Reports: Psoriasis Oncologic: Reports: Breast, Other (See Below) Other Oncologic Family History: stomach - Tobacco Use Smoking Status *Q: Current Every Day Smoker Years of Tobacco use: 50 Packs/Tins Daily: 0.5 - Caffeine Use Caffeine Use: Reports: Coffee - Recreational Drug Use Recreational Drug Use: No ED ROS GENERAL - Review of Systems Review Of Systems: See Below Constitutional: Reports: Other (pt is unresponsive. ) HEENT: Reports: No Symptoms Respiratory: Reports: No Symptoms Cardiovascular: Reports: No Symptoms Endocrine: Reports: No Symptoms GI/Abdominal: Reports: No Symptoms Musculoskeletal: Reports: No Symptoms Skin: Reports: No Symptoms Neurological: Reports: Other (pt is unresponsive. She does open her eyes to voice. ) ED EXAM, NEURO - Physical Exam Exam: See Below Text/Narrative:: pt arrived unresponsive. Last seen well last nite. She does respond with opening her eyes with voice. Exam Limited By: No Limitations General Appearance: Other (pt is unresponsive. ) Ears: Normal TMs Nose: Normal Inspection Throat/Mouth: Normal Inspection Head Exam: Atraumatic Neck: Normal Inspection Respiratory/Chest: No Respiratory Distress Cardiovascular: Regular Rate, Rhythm GI/Abdominal: Soft, Non-Tender (Female) Exam: Other ( romo cath) Rectal (Female) Exam: Deferred Neurological: Other (pt is unresponsive last seen well at 7 pm. ) Back Exam: Normal Inspection Extremities: Normal Inspection Course - Vital Signs Last Recorded V/S: Last Vital Signs Temp 36.2 C 08/02/19 06:00 Pulse 83 08/02/19 06:46 Resp 21 H 08/02/19 06:46 BP 174/104 H 08/02/19 06:46 Pulse Ox 95 08/02/19 06:46 - Orders/Labs/Meds Orders: Active Orders 24 hr Category Date Time Status EKG Documentation Completion [RC] ASDIRECTED Care 08/02/19 06:02 Active Romo Catheter Insertion [Insert Urinary Catheter] [OM. Care 08/02/19 06:15 Ordered PC] Q24H Urinary Catheter Assessment [RC] ASDIRECTED Care 08/02/19 06:04 Active Head wo Cont [CT] Stat Exams 08/02/19 06:01 Taken CARBAMAZEPINE(TEGRETOL),S Stat Lab 08/02/19 06:24 Received COMPREHENSIVE METABOLIC PN,CMP [CHEM] Urgent Lab 08/02/19 06:26 Received EKG 12 Lead [EK] Routine Ther 08/02/19 06:02 Ordered Labs: Laboratory Tests 08/02/19 08/02/19 08/02/19 Range/Units 06:20 06:26 06:26 WBC 10.3 (4.5-11.0) K/uL RBC 4.85 (3.30-5.50) M/uL Hgb 14.7 (12.0-15.0) g/dL Hct 46.3 (36.0-48.0) % MCV 96 (80-98) fL MCH 30 (27-31) pg MCHC 32 (32-36) % Plt Count 396 (150-400) K/uL Neut % (Auto) 75 H (36-66) % Lymph % (Auto) 11 L (24-44) % [place] % (Auto) 10 H (2-6) % Eos % (Auto) 3 (2-4) % Baso % (Auto) 1 (0-1) % Urine Color Yellow (YELLOW) Urine Appearance Clear (CLEAR) Urine pH 7.0 (5.0-8.0) Ur Specific [place] 1.020 (1.008-1.030) Urine Protein Negative (NEGATIVE) mg/dL Urine Glucose (UA) Negative (NEGATIVE) mg/dL Urine Ketones Negative (NEGATIVE) mg/dL Urine Occult Blood Negative (NEGATIVE) Urine Nitrite Negative (NEGATIVE) Urine Bilirubin Negative (NEGATIVE) Urine Urobilinogen 0.2 (0.2-1.0) EU/dL Ur Leukocyte Esterase Negative (NEGATIVE) Urine RBC Not seen (0-5) Urine WBC Not seen (0-5) Ur Epithelial Cells Not seen Amorphous Sediment Not seen Urine Bacteria Not seen Urine Mucus Not seen Urine Opiates Screen Negative (NEGATIVE) Ur Oxycodone Screen Negative (NEGATIVE) Urine Methadone Screen Negative (NEGATIVE) Ur Propoxyphene Screen Negative (NEGATIVE) Ur Barbiturates Screen Negative (NEGATIVE) Ur Tricyclics Screen Negative (NEGATIVE) Ur Phencyclidine Scrn Negative (NEGATIVE) Ur Amphetamine Screen Negative (NEGATIVE) U Methamphetamines Scrn Negative (NEGATIVE) Urine MDMA Screen Negative (NEGATIVE) U Benzodiazepines Scrn Negative (NEGATIVE) U Cocaine Metab Screen Negative (NEGATIVE) U Marijuana (THC) Screen Negative (NEGATIVE) Meds: Medications Discontinued Medications Generic Name Dose Route Start Last Admin Trade Name Freq PRN Reason Stop Dose Admin Labetalol HCl 20 mg 08/02/19 06:41 08/02/19 06:46 Normodyne IVPUSH 08/02/19 06:42 20 mg ONETIME ONE Administration Protocol Labetalol HCl Confirm 08/02/19 06:42 08/02/19 06:46 Normodyne Administered 08/02/19 06:43 Not Given Dose 20 mg .ROUTE .STK-MED ONE Nimodipine 60 mg 08/02/19 06:31 08/02/19 06:38 Nimodipine PO 08/02/19 06:32 60 mg ONETIME ONE Administration - Re-Assessments/Exams Free Text/Narrative Re-Assessment/Exam: 08/02/19 06:36 cat scan of the head showed a left frontal intrapra. bleed, 3.1 x 1.9. mild mass affect. Departure - Departure Time of Disposition: 06:37 Disposition: DC/Tfer to Acute Hospital 02 Condition: Fair Clinical Impression: Hemorrhage of left cerebral hemisphere following injury - Discharge Information Referrals: PCP,None [Primary Care Provider] - Forms: ED Department Discharge Care Plan Goals: transfer to [facility]. Sepsis Event Note - Focused Exam Vital Signs: Vital Signs Temp Pulse Resp BP BP Pulse Ox 08/02/19 06:46 83 21 H 174/104 H 95 08/02/19 06:38 184/113 H 08/02/19 06:29 87 24 H 184/113 H 94 L 08/02/19 06:14 74 21 H 174/97 H 92 L 08/02/19 06:00 36.2 C 71 21 H 180/100 H 95 Date Exam was Performed: 08/02/19 Time Exam was Performed: 06:48 - My Orders Last 24 Hours: My Active Orders 08/02/19 06:01 Head wo Cont [CT] Stat 08/02/19 06:02 EKG Documentation Completion [RC] ASDIRECTED EKG 12 Lead [EK] Routine 08/02/19 06:04 Urinary Catheter Assessment [RC] ASDIRECTED 08/02/19 06:15 Romo Catheter Insertion [Insert Urinary Catheter] [OM.PC] Q24H 08/02/19 06:24 CARBAMAZEPINE(TEGRETOL),S Stat 08/02/19 06:26 COMPREHENSIVE METABOLIC PN,CMP [CHEM] Urgent - Assessment/Plan Last 24 Hours: My Active Orders 08/02/19 06:01 Head wo Cont [CT] Stat 08/02/19 06:02 EKG Documentation Completion [RC] ASDIRECTED EKG 12 Lead [EK] Routine 08/02/19 06:04 Urinary Catheter Assessment [RC] ASDIRECTED 08/02/19 06:15 Romo Catheter Insertion [Insert Urinary Catheter] [OM.PC] Q24H 08/02/19 06:24 CARBAMAZEPINE(TEGRETOL),S Stat 08/02/19 06:26 COMPREHENSIVE METABOLIC PN,CMP [CHEM] Urgent
[2019-08-02] MEDS ORDERED: Labetalol 100 MG/20 ML MDV IVPUSH ONE (06:41)
[2019-08-02] MEDS ORDERED: Labetalol 20 MG/4 ML Syringe ONE (06:42)
--- NOTE | 2019-08-03 07:11 | CRLCT ---
Final Report: INDICATION: Unresponsive COMPARISON: None TECHNIQUE: CT examination of the head was performed as axial sections without intravenous contrast. Images were obtained from the vertex of the skull through the skull base. Please note that all CT scans at this facility use dose modulation, iterative reconstruction, and/or weight-based dosing when appropriate to reduce radiation dose to as low as reasonably achievable. FINDINGS: There is cortical and central atrophy. There is intraparenchymal hemorrhage/ hematoma in the deep white matter of the left posterior frontal region. This is located in the deep white matter and measures approximately 3.5 x 1.9 centimeters in its anteroposterior and medial-lateral dimension. This extends cranially approaching the body of the caudate nucleus. There is mild surrounding regional edema but no shift. IMPRESSION: Left intracranial hemorrhage. I discussed the above findings with Dr. Senia Perez at 6:20 he 5 a.m. on Friday, August 02, [address] all [address] scans at this facility use dose modulation, iterative reconstruction, and/or weight-based dosing when appropriate to reduce radiation dose to as low as reasonably achievable. Dictated by Leno Michaels MD @ Aug 02 2019 6:26AM Signed by: Leno Michaels MD @08/02/2019 6:30:09 AM (Electronic Signature) MTDD
== END 2019-08-02 06:50 ==
LOC: JP.ED 05:57
DX: S06.359A Traumatic hemorrhage of left cerebrum with loss of consciousness of unspecified duration, initial encounter (principal); J44.9 Chronic obstructive pulmonary disease, unspecified; I10 Essential (primary) hypertension; Z79.899 Other long term (current) drug therapy; Z88.1 Allergy status to other antibiotic agents; Z88.5 Allergy status to narcotic agent; X58.XXXA Exposure to other specified factors, initial encounter
CPT/HCPCS: 36415; 51702; 70450; 80053; 80156; 80305; 81001; 85025; 93005; 96374; 99285; A9270; J3490

== ENCOUNTER 2019-09-20 11:16 | Emergency (ER) | payer MEDICARE, MEDICAID ==
--- NOTE | 2019-09-20 12:04 | EDM.PDOC ---
ED HPI GENERAL MEDICAL PROBLEM - General Chief Complaint: Upper Extremity Injury/Pain Stated Complaint: RIGHT SHOULDER PAIN Time Seen by Provider: 09/20/19 11:56 Source of Information: Reports: Patient, RN Notes Reviewed History Limitations: Reports: No Limitations - History of Present Illness INITIAL COMMENTS - FREE TEXT/NARRATIVE: 68-year-old female presents emergency department a complaint of right shoulder pain, she has a history of CVA with right-sided weakness she has minimal movement in the right arm she states she rolled over last night significant pain in the right arm the pain now has subsided - Related Data Allergies Allergy/AdvReac Type Severity Reaction Status Date / Time erythromycin base Allergy Difficulty Verified 08/02/19 06:40 Breathing hydrocodone Allergy Swelling Verified 08/02/19 06:40 oxycodone Allergy Swelling Verified 08/02/19 06:40 Home Meds: Home Meds Fluticasone/Salmeterol [Advair 500-50] 1 ampule INH BID 11/08/18 [History] Ipratropium/Albuterol Sulfate [Iprat-Albut 0.5-3(2.5) mg/3 ml] 3 ml INH DAILY [History] Metoprolol Tartrate 1 tab PO BID 11/08/18 [History] Venlafaxine [Effexor] 75 mg PO BEDTIME 11/08/18 [History] trandolapriL [Mavik] 2 mg PO DAILY 11/08/18 [History] carBAMazepine [Carbamazepine ER] 400 mg PO BID PRN 11/20/18 [History] Acetaminophen/Caffeine [Excedrin Tension Headache] 1 - 2 tab PO Q8HR PRN [History] amLODIPine [Norvasc] 10 mg PO DAILY 09/20/19 [History] atorvaSTATin [Lipitor] 10 mg PO BEDTIME 09/20/19 [History] levETIRAcetam [Levetiracetam] 500 mg PO BID 09/20/19 [History] trandolapriL [Trandolapril] 2 mg PO DAILY 09/20/19 [History] Past Medical History HEENT History: Reports: Impaired Vision Other HEENT History: wears glasses Cardiovascular History: Reports: Hypertension, SOB on Exertion Respiratory History: Reports: COPD Gastrointestinal History: Reports: Colon Polyp 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: Musculoskeletal History: Reports: Arthritis, Back Pain, Chronic, Fracture, Other (See Below) Other Musculoskeletal History: ORIF right tibial plat 11/20/18 Neurological History: Reports: CVA, Other (See Below) Other Neuro History: trigeminal neuralgia Psychiatric History: Reports: ADD Hematologic History: Reports: Blood Transfusion(s) Immunologic History: Reports: None Oncologic (Cancer) History: Reports: None Dermatologic History: Reports: Psoriasis - Infectious Disease History Infectious Disease History: Reports: Chicken Pox - Past Surgical History Head Surgeries/Procedures: Reports: None GI Surgical History: Reports: Colonoscopy, Polypectomy Female Surgical History: Reports: Tubal Ligation Neurological Surgical History: Reports: Lumbar Spine Musculoskeletal Surgical History: Reports: Hip Replacement, Other (See Below) Other Musculoskeletal Surgeries/Procedures:: orif right tib palt FX Social & Family History - Family History Family Medical History: Noncontributory Musculoskeletal: Reports: Arthritis, Back pain, Chronic Dermatologic: Reports: Psoriasis Oncologic: Reports: Breast, Other (See Below) Other Oncologic Family History: stomach - Tobacco Use Smoking Status *Q: Current Every Day Smoker Years of Tobacco use: 60 Packs/Tins Daily: 0.5 - Caffeine Use Caffeine Use: Reports: Coffee - Recreational Drug Use Recreational Drug Use: No Review of Systems - Review of Systems Review Of Systems: See Below Constitutional: Reports: No Symptoms Respiratory: Reports: No Symptoms Cardiovascular: Reports: No Symptoms Musculoskeletal: Reports: Shoulder Pain ED EXAM, GENERAL - Physical Exam Exam: See Below Free Text/Narrative:: Examination the right shoulder there is no movement however when I do passive range of motion pain is elicited in the thumb with rotation of her arm above her head I cannot appreciate any obvious deformity radial pulses +2 Exam Limited By: No Limitations General Appearance: Alert, WD/WN, No Apparent Distress Respiratory/Chest: No Respiratory Distress Course - Vital Signs Last Recorded V/S: Last Vital Signs Temp 97.7 F 09/20/19 11:38 Pulse 73 09/20/19 12:30 Resp 16 09/20/19 12:30 BP 149/83 H 09/20/19 12:30 Pulse Ox 95 09/20/19 12:30 Departure - Departure Time of Disposition: 13:04 Disposition: Home, Self-Care 01 Condition: Fair Clinical Impression: Right shoulder pain Qualifiers: Chronicity: acute Qualified Code(s): M25.511 - Pain in right shoulder - Discharge Information Instructions: Shoulder Pain Referrals: Gloria Estrada MD [Primary Care Provider] - Forms: ED Department Discharge Additional Instructions: Continue with your regular medications, please followup with your primary care provider in 3-5 days if not better, please call return to the emergency department with worsening of symptoms. Sepsis Event Note - Evaluation Sepsis Screening Result: No Definite Risk - Focused Exam Vital Signs: Vital Signs Temp Pulse Resp BP Pulse Ox 09/20/19 12:30 73 16 149/83 H 95 09/20/19 12:00 68 16 142/83 H 96 09/20/19 11:38 97.7 F 66 16 168/89 H 94 L 09/20/19 11:36 97.7 F 66 16 168/89 H 94 L Date Exam was Performed: 09/20/19 Time Exam was Performed: 13:04 - Assessment/Plan Plan: Assessment Acuity = acute Site and laterality = right shoulder pain Etiology = unknown Manifestations = none Location of injury = Home Lab values = shoulder x-ray shows no fracture or dislocation Plan I did review shoulder films with her she is pain-free at this time plan is to discharge home follow-up primary care 3 to 5 days if not better This note was dictated using [employer] voice recognition software please call with any questions on syntax or grammar.
--- NOTE | 2019-09-20 12:36 | CR ---
Shoulder Comp Rt CLINICAL HISTORY: Pain FINDINGS: There is no acute fracture or dislocation in the right shoulder. There is moderate spurring at the AC joint. Glenohumeral joint appears intact. Impression: Moderate AC joint spurring No fracture or osseous lesion
== END 2019-09-20 13:21 | disposition home or self-care (01) ==
LOC: JP.ED 11:16
DX: M25.511 Pain in right shoulder (principal); I10 Essential (primary) hypertension; J44.9 Chronic obstructive pulmonary disease, unspecified; F17.210 Nicotine dependence, cigarettes, uncomplicated; Z88.1 Allergy status to other antibiotic agents; Z88.5 Allergy status to narcotic agent; Z79.899 Other long term (current) drug therapy; Z86.73 Personal history of transient ischemic attack (TIA), and cerebral infarction without residual deficits
CPT/HCPCS: 73030-26-RT; 73030-RT; 99281; 99283-25

== ENCOUNTER 2023-10-19 14:15 | Emergency (ER) | payer MEDICARE, MEDICAID ==
[2023-10-19 14:52] LABS: BASOPHILS ABSOLUTE AUTO 0.12 K/uL (0.00-0.10); BASOPHILS PERCENT AUTO 1.5 % (0.1-1.3); EOSINOPHILS ABSOLUTE AUTO 0.18 K/uL (0.00-0.40); EOSINOPHILS PERCENT AUTO 2.2 % (0.0-5.4); HEMATOCRIT 38.1 % (34.3-46.0); HEMOGLOBIN 13.1 g/dL (11.2-15.5); IMMATURE GRAN ABSOLUTE AUTO 0.03 K/uL (0.00-0.23); IMMATURE GRAN PERCENT AUTO 0.4 % (0.0-0.7); LYMPHOCYTES ABSOLUTE AUTO 1.09 K/uL (0.8-3.3); LYMPHOCYTES PERCENT AUTO 13.2 % (11.4-47.7); MEAN CORPUSCULAR HEMOGLOBIN 31.6 pg (31.6-35.5); MEAN CORPUSCULAR HGB CONC 34.4 g/dL (31.6-35.5); MONOCYTES ABSOLUTE AUTO 0.64 K/uL (0.20-0.90); MONOCYTES PERCENT AUTO 7.8 % (3.3-12.6); NEUTROPHILS ABSOLUTE AUTO 6.18 K/uL (1.0-7.6); NEUTROPHILS PERCENT AUTO 74.9 % (40.0-78.1); PLATELET COUNT,PLT 392 K/uL (130-375); RED BLOOD CELL COUNT 4.14 M/uL (3.77-5.24); WHITE BLOOD CELL COUNT,WBC 8.2 K/uL (3.2-11.0)
[2023-10-19 15:14] LABS: ALANINE AMINOTRANSFERASE,ALT 20 U/L (12-78); ALBUMIN 3.3 g/dL (3.4-5.0); ALKALINE PHOSPHATASE 88 U/L (46-116); ASPARTATE AMNIOTRANSFERASE,AST 16 U/L (15-37); BILIRUBIN TOTAL 0.4 mg/dL (0.2-1.0); BLOOD UREA NITROGEN,BUN 7 mg/dL (7-18); CALCIUM 9.5 mg/dL (8.5-10.1); CARBON DIOXIDE,CO2 26 mmol/L (21-32); CHLORIDE,CL 97 mmol/L (100-108); CREATININE 0.6 mg/dL (0.6-1.0); ESTIMATED GFR 95 mL/min (>60); GLUCOSE RANDOM 114 mg/dL (74-106); MAGNESIUM 1.6 mg/dL (1.8-2.4); POTASSIUM,K 4.2 mmol/L (3.6-5.2); PROTEIN TOTAL,TP 6.5 g/dL (6.4-8.2); SODIUM,NA 130 mmol/L (140-148)
[2023-10-19 15:15] LABS: ANION GAP 11.2 mmol/L (5.0-14.0); C-REACTIVE PROTEIN < 0.50 mg/dL (<0.50)
[2023-10-19] MEDS: Magnesium Sulfate/Water 2 GM in Premix Bag 1 BAG IV SCH (15:28)
[2023-10-19] MEDS: Sodium Chloride 0.9% 500 ML IV ONE (17:17)
[2023-10-19] MEDS: methylPREDNISolone Sodium Succinate 125 MG/2 ML SDV IVPUSH ONE (17:18)
[2023-10-19] MEDS: Albuterol/Ipratropium 3.0-0.5 MG/3 ML Neb Soln NEB ONE (19:01)
[2023-10-19] MEDS: Venlafaxine 75 MG Tab PO ONE (22:49)
[2023-10-19] MEDS: atorvaSTATin 10 MG Tab PO SCH (22:50)
[2023-10-19] MEDS: carBAMazepine 100 MG Tab ER PO ONE (22:50)
== END 2023-10-19 23:12 ==
LOC: JP.ED 14:15
DX: J44.1 Chronic obstructive pulmonary disease with (acute) exacerbation (principal); I10 Essential (primary) hypertension; Z79.899 Other long term (current) drug therapy; Z88.5 Allergy status to narcotic agent; Z88.8 Allergy status to other drugs, medicaments and biological substances
CPT/HCPCS: 36415; 71045; 80053; 83735; 85025; 86140; 93005; 93010; 94640; 96365; 96366; 96375; 99284; 99285; A9270; J2919; J3475; J7040; J7620

== ENCOUNTER 2023-11-17 19:24 | Emergency (ER) | payer MEDICARE, MEDICAID ==
[2023-11-17 21:05] LABS: BASOPHILS ABSOLUTE AUTO 0.06 K/uL (0.00-0.10); BASOPHILS PERCENT AUTO 0.6 % (0.1-1.3); EOSINOPHILS ABSOLUTE AUTO 0.07 K/uL (0.00-0.40); EOSINOPHILS PERCENT AUTO 0.8 % (0.0-5.4); HEMATOCRIT 40.6 % (34.3-46.0); HEMOGLOBIN 14.4 g/dL (11.2-15.5); IMMATURE GRAN ABSOLUTE AUTO 0.03 K/uL (0.00-0.23); IMMATURE GRAN PERCENT AUTO 0.3 % (0.0-0.7); LYMPHOCYTES ABSOLUTE AUTO 1.07 K/uL (0.8-3.3); LYMPHOCYTES PERCENT AUTO 11.5 % (11.4-47.7); MEAN CORPUSCULAR HEMOGLOBIN 31.9 pg (31.6-35.5); MEAN CORPUSCULAR HGB CONC 35.5 g/dL (31.6-35.5); MEAN CORPUSCULAR VOLUME 89.8 fL (81.4-99.0); MONOCYTES ABSOLUTE AUTO 0.74 K/uL (0.20-0.90); MONOCYTES PERCENT AUTO 7.9 % (3.3-12.6); NEUTROPHILS ABSOLUTE AUTO 7.34 K/uL (1.0-7.6); NEUTROPHILS PERCENT AUTO 78.9 % (40.0-78.1); PLATELET COUNT,PLT 342 K/uL (130-375); RED BLOOD CELL COUNT 4.52 M/uL (3.77-5.24); WHITE BLOOD CELL COUNT,WBC 9.3 K/uL (3.2-11.0)
[2023-11-17 21:21] LABS: ANION GAP 12.3 mmol/L (5.0-14.0); CALCIUM 9.9 mg/dL (8.5-10.1); CREATININE 0.4 mg/dL (0.6-1.0); EST CRCL DRUG DOSING (CG) 94.18 mL/min; POTASSIUM,K 4.3 mmol/L (3.6-5.2)
[2023-11-17] MEDS: methylPREDNISolone Sodium Succinate 125 MG/2 ML SDV IVPUSH ONE (21:34)
[2023-11-17] MEDS: Albuterol/Ipratropium 3.0-0.5 MG/3 ML Neb Soln NEB ONE (21:34)
== END 2023-11-17 22:20 | disposition home or self-care (01) ==
LOC: JP.ED 19:24
DX: J44.1 Chronic obstructive pulmonary disease with (acute) exacerbation (principal); I10 Essential (primary) hypertension; F17.210 Nicotine dependence, cigarettes, uncomplicated; Z88.1 Allergy status to other antibiotic agents; Z88.5 Allergy status to narcotic agent; Z79.899 Other long term (current) drug therapy; Z79.51 Long term (current) use of inhaled steroids; Z86.73 Personal history of transient ischemic attack (TIA), and cerebral infarction without residual deficits
CPT/HCPCS: 36415; 71045; 80048; 83605; 85025; 94640; 96374; 99285; J2919; J7620

== ENCOUNTER 2023-12-02 16:49 | Emergency (ER) | payer MEDICARE, MEDICAID ==
[2023-12-02 17:39] LABS: BASE EXCESS VENOUS 1.3 mm/L; BASOPHILS ABSOLUTE AUTO 0.06 K/uL (0.00-0.10); BASOPHILS PERCENT AUTO 0.6 % (0.1-1.3); BICARBONATE,VENOUS 26.2 mmol/L; CARBOXYHEMOGLOBIN 4.1 % (0.0-1.6); EOSINOPHILS ABSOLUTE AUTO 0.07 K/uL (0.00-0.40); EOSINOPHILS PERCENT AUTO 0.6 % (0.0-5.4); HEMATOCRIT 41.9 % (34.3-46.0); HEMOGLOBIN 14.7 g/dL (11.2-15.5); IMMATURE GRAN ABSOLUTE AUTO 0.03 K/uL (0.00-0.23); IMMATURE GRAN PERCENT AUTO 0.3 % (0.0-0.7); LYMPHOCYTES ABSOLUTE AUTO 1.01 K/uL (0.8-3.3); LYMPHOCYTES PERCENT AUTO 9.3 % (11.4-47.7); MEAN CORPUSCULAR HEMOGLOBIN 32.4 pg (31.6-35.5); MEAN CORPUSCULAR HGB CONC 35.1 g/dL (31.6-35.5); MEAN CORPUSCULAR VOLUME 92.3 fL (81.4-99.0); METHEMOGLOBIN 0.8 %; MONOCYTES ABSOLUTE AUTO 1.05 K/uL (0.20-0.90); MONOCYTES PERCENT AUTO 9.7 % (3.3-12.6); NEUTROPHILS ABSOLUTE AUTO 8.64 K/uL (1.0-7.6); NEUTROPHILS PERCENT AUTO 79.5 % (40.0-78.1); O2 SATURATION VENOUS 76.3; OXYHEMOGLOBIN 72.6 %; PCO2 VENOUS 44.5 mm/Hg; PH,VENOUS 7.387 (7.350-7.450); PLATELET COUNT,PLT 390 K/uL (130-375); PO2 VENOUS 43.5 mm/Hg; RED BLOOD CELL COUNT 4.54 M/uL (3.77-5.24); TOTAL HEMOGLOBIN 15.4 g/dL (12.0-16.0); WHITE BLOOD CELL COUNT,WBC 10.9 K/uL (3.2-11.0)
[2023-12-02] MEDS: Sodium Chloride 0.9% 1,000 ML IV ONE (17:39)
[2023-12-02] MEDS: Albuterol/Ipratropium 3.0-0.5 MG/3 ML Neb Soln NEB ONE (17:43)
[2023-12-02 18:08] LABS: A/G RATIO 1.2 (1.2-2.2); ALANINE AMINOTRANSFERASE,ALT 25 U/L (12-78); ALBUMIN 3.8 g/dL (3.4-5.0); ALKALINE PHOSPHATASE 92 U/L (46-116); ANION GAP 13.4 mmol/L (5.0-14.0); ASPARTATE AMNIOTRANSFERASE,AST 17 U/L (15-37); BILIRUBIN TOTAL 0.3 mg/dL (0.2-1.0); BLOOD UREA NITROGEN,BUN 11 mg/dL (7-18); CALCIUM 9.9 mg/dL (8.5-10.1); CARBON DIOXIDE,CO2 28 mmol/L (21-32); CHLORIDE,CL 95 mmol/L (100-108); CREATININE 0.6 mg/dL (0.6-1.0); ESTIMATED GFR 94 mL/min (>60); GLUCOSE RANDOM 120 mg/dL (74-106); POTASSIUM,K 4.4 mmol/L (3.6-5.2); PRO B-TYPE NATRIUR PEPT,BNPPRO 349 pg/mL (5-125); SODIUM,NA 132 mmol/L (140-148); TROPONIN I HIGH SENSITIVITY 6.7 pg/mL (<=60.3)
[2023-12-02] MEDS: methylPREDNISolone Sodium Succinate 125 MG/2 ML SDV ONE (18:43)
[2023-12-02] MEDS: Magnesium Sulfate/Water 2 GM in Premix Bag 1 BAG IV ONE (18:44)
[2023-12-02] MEDS: Sodium Chloride 0.9% 100 ML IV SCH (18:46)
[2023-12-02] MEDS: Iopamidol 755 Mg/ML 100 ML Bottle IV SCH (18:46)
[2023-12-02] MEDS: methylPREDNISolone Sodium Succinate 125 MG/2 ML SDV IVPUSH ONE (18:49)
[2023-12-02] MEDS: methylPREDNISolone Sod Succ 1,000 MG in Dextrose 5% in Water 100 ML IV ONE (18:51)
[2023-12-02] MEDS: methylPREDNISolone Sod Succ 125 MG in Dextrose 5% in Water 100 ML IV ONE (19:45)
[2023-12-02 20:29] LABS: CORONAVIRUS COVID-19 NAA NEGATIVE (NEGATIVE); INFLUENZA A NAA NEGATIVE (NEGATIVE); INFLUENZA B NAA NEGATIVE (NEGATIVE); RESPIRATORY SYNCYTIAL VIR NAA NEGATIVE (NEGATIVE)
== END 2023-12-02 21:50 | disposition home or self-care (01) ==
LOC: JP.ED 16:49
DX: J44.1 Chronic obstructive pulmonary disease with (acute) exacerbation (principal); E86.0 Dehydration; I10 Essential (primary) hypertension; Z88.8 Allergy status to other drugs, medicaments and biological substances; Z79.899 Other long term (current) drug therapy; F41.9 Anxiety disorder, unspecified
CPT/HCPCS: 0241U; 36415; 71045; 71275; 80053; 82803; 83605; 83735; 83880; 84145; 84484; 85025; 85379; 93005; 93010; 94640; 96361; 96365; 96366; 96375; 99284; 99285; J2919; J3475; J3490; J7030; Q9967; J7620

== ENCOUNTER 2024-06-30 18:46 | Emergency (ER) | payer MEDICARE, MEDICAID ==
[2024-06-30 19:00] LABS: BASOPHILS ABSOLUTE AUTO 0.09 K/uL (0.00-0.10); BASOPHILS PERCENT AUTO 0.7 % (0.1-1.3); EOSINOPHILS ABSOLUTE AUTO 0.16 K/uL (0.00-0.40); EOSINOPHILS PERCENT AUTO 1.2 % (0.0-5.4); HEMATOCRIT 41.7 % (34.3-46.0); IMMATURE GRAN ABSOLUTE AUTO 0.06 K/uL (0.00-0.23); IMMATURE GRAN PERCENT AUTO 0.5 % (0.0-0.7); LYMPHOCYTES ABSOLUTE AUTO 2.19 K/uL (0.8-3.3); LYMPHOCYTES PERCENT AUTO 17.1 % (11.4-47.7); MEAN CORPUSCULAR HEMOGLOBIN 32.2 pg (31.6-35.5); MEAN CORPUSCULAR HGB CONC 33.6 g/dL (31.6-35.5); MEAN CORPUSCULAR VOLUME 95.9 fL (81.4-99.0); MONOCYTES ABSOLUTE AUTO 1.52 K/uL (0.20-0.90); MONOCYTES PERCENT AUTO 11.9 % (3.3-12.6); NEUTROPHILS PERCENT AUTO 68.6 % (40.0-78.1); PLATELET COUNT,PLT 323 K/uL (130-375); RED BLOOD CELL COUNT 4.35 M/uL (3.77-5.24); WHITE BLOOD CELL COUNT,WBC 12.8 K/uL (3.2-11.0)
[2024-06-30 19:24] LABS: LACTIC ACID 3.3 mmol/L (0.4-2.0)
[2024-06-30 19:26] LABS: A/G RATIO 1.3 (1.2-2.2); ALANINE AMINOTRANSFERASE,ALT 20 U/L (12-78); ALBUMIN 3.8 g/dL (3.4-5.0); ALKALINE PHOSPHATASE 64 U/L (46-116); ASPARTATE AMNIOTRANSFERASE,AST 16 U/L (15-37); BILIRUBIN TOTAL 0.5 mg/dL (0.2-1.0); BLOOD UREA NITROGEN,BUN 11 mg/dL (7-18); CALCIUM 9.9 mg/dL (8.5-10.1); CARBON DIOXIDE,CO2 31 mmol/L (21-32); CHLORIDE,CL 100 mmol/L (100-108); ESTIMATED GFR 59 mL/min (>60); GLUCOSE RANDOM 119 mg/dL (74-106); POTASSIUM,K 4.1 mmol/L (3.6-5.2); PROTEIN TOTAL,TP 6.7 g/dL (6.4-8.2); SODIUM,NA 137 mmol/L (140-148)
[2024-06-30 19:27] LABS: ANION GAP 10.1 mmol/L (5.0-14.0)
[2024-06-30] MEDS: Sodium Chloride 0.9% 1,000 ML IV SCH (19:56)
[2024-06-30] MEDS: Albuterol/Ipratropium 3.0-0.5 MG/3 ML Neb Soln NEB ONE (21:34)
[2024-06-30 23:59] LABS: APPEARANCE,URINE CLEAR (CLEAR); BILIRUBIN,URINE NEGATIVE (NEGATIVE); COLOR,URINE YELLOW (YELLOW); GLUCOSE,URINE NEGATIVE (NEGATIVE); KETONES,URINE NEGATIVE (NEGATIVE); LEUKOCYTE ESTERASE,URINE NEGATIVE (NEGATIVE); NITRITE,URINE NEGATIVE (NEGATIVE); OCCULT BLOOD,URINE NEGATIVE (NEGATIVE); PROTEIN,URINE NEGATIVE (NEGATIVE); UROBILINOGEN,URINE 0.2 EU/dL (0.2-1.0)
[2024-07-01 00:05] LABS: AMORPHOUS SEDIMENT,URINE NOT SEEN; BACTERIA,URINE FEW; EPITHELIAL CELLS,URINE FEW; MUCUS,URINE NOT SEEN; RBC,URINE 0-5 (0-5); WBC,URINE 0-5 (0-5)
[2024-07-01] MEDS: Sodium Chloride 0.9% 100 ML IV SCH (00:22)
[2024-07-01] MEDS: Iopamidol 755 Mg/ML 100 ML Bottle IV SCH (00:22)
[2024-07-01] MEDS: Sodium Chloride 0.9% 10 ML Syringe FLUSH ONE (00:22)
[2024-07-01 00:42] LABS: BASE EXCESS ARTERIAL 1.5 mm/L; BICARBONATE,ARTERIAL 25.1 mmol/L (22.0-26.0); CARBOXYHEMOGLOBIN 2.7 % (0.0-1.6); METHEMOGLOBIN 0.7 %; PCO2 ARTERIAL 38.1 mmHg (35.0-42.0); TOTAL HEMOGLOBIN 12.8 g/dL (12.0-16.0)
[2024-07-01 00:44] LABS: O2 SATURATION ARTERIAL > 99.3 % (95.0-98.0)
[2024-07-01 00:49] LABS: CORONAVIRUS COVID-19 NAA NEGATIVE (NEGATIVE); INFLUENZA A NAA NEGATIVE (NEGATIVE); INFLUENZA B NAA NEGATIVE (NEGATIVE); RESPIRATORY SYNCYTIAL VIR NAA NEGATIVE (NEGATIVE)
[2024-07-01] MEDS: cefTRIAXone 2 GM in Sodium Chloride 0.9% 50 ML IV ONE (02:05)
[2024-07-01] MEDS: Acetaminophen 325 MG Tab PO ONE (02:07)
[2024-07-01] MEDS: Doxycycline 100 MG Cap PO ONE (02:07)
[2024-07-01] MEDS: Albuterol/Ipratropium 3.0-0.5 MG/3 ML Neb Soln NEB ONE (02:36)
[2024-07-01] MEDS: Nitroglycerin 0.1 MG/HR Transdermal Patch TRDERM ONE (04:11)
[2024-07-01] MEDS: metroNIDAZOLE/Normal Saline 500 MG in Premix Bag 1 BAG IV ONE (04:25)
[2024-07-01] MEDS: VANCOmycin 1 GM in Sodium Chloride 0.9% 250 ML IV ONE (04:31)
[2024-07-01] MEDS ORDERED: Albuterol 6.7 GM Inhaler INH PRN (08:39)
[2024-07-01] MEDS ORDERED: Non-Formulary Medication 1 Each (Metoprolol Succinate [Metoprolol Succinate] 100 MG Tab.Er PO SCH (09:00)
[2024-07-01] MEDS ORDERED: CARBAMAZEPINE 400 MG PO SCH (09:00)
[2024-07-01] MEDS ORDERED: TRANDOLAPRIL 4 MG PO SCH (09:00)
[2024-07-01] MEDS ORDERED: Non-Formulary Medication 1 Each (Fluticasone/Salmeterol [Advair 500-50] 14 PUFF/DISKUS Dis INH SCH (09:00)
[2024-07-01] MEDS ORDERED: Non-Formulary Medication 1 Each (Prednisone [Prednisone] 10 MG Tablet) PO SCH (09:00)
[2024-07-01] MEDS: Albuterol/Ipratropium 3.0-0.5 MG/3 ML Neb Soln INH SCH (09:08)
[2024-07-01] MEDS: Lactated Ringers 1,000 ML IV ONE (09:08)
[2024-07-01] MEDS: Metoprolol Succinate 50 MG Tab.ER PO SCH (10:12)
[2024-07-01] MEDS: amLODIPine 5 MG Tab PO SCH (10:14)
[2024-07-01] MEDS: Clopidogrel 75 MG Tab PO SCH ×2 (10:15→14:23)
[2024-07-01] MEDS: predniSONE 5 MG Tab PO SCH (10:18)
[2024-07-01] MEDS: Lisinopril 20 MG Tab PO SCH (10:19)
[2024-07-01] MEDS: Formoterol/Mometasone 200-5 MCG 8.8 GM Inhaler INH SCH (10:20)
[2024-07-01] MEDS: methylPREDNISolone Sodium Succinate 125 MG/2 ML SDV IVPUSH ONE (15:03)
[2024-07-01] MEDS ORDERED: carBAMazepine 100 MG Tab ER PO SCH (21:00)
[2024-07-01] MEDS ORDERED: Venlafaxine 75 MG Tab PO SCH (21:00)
[2024-07-01] MEDS ORDERED: atorvaSTATin 10 MG Tab PO SCH (21:00)
== END 2024-07-01 17:15 | disposition home or self-care (01) ==
LOC: JP.ED 18:46
DX: J44.1 Chronic obstructive pulmonary disease with (acute) exacerbation (principal); I10 Essential (primary) hypertension; Z86.73 Personal history of transient ischemic attack (TIA), and cerebral infarction without residual deficits; Z88.1 Allergy status to other antibiotic agents; Z88.5 Allergy status to narcotic agent; Z79.51 Long term (current) use of inhaled steroids; Z79.899 Other long term (current) drug therapy
CPT/HCPCS: 0241U; 36415; 36600; 70450; 71275; 80053; 81001; 82803; 83605; 84484; 85025; 85379; 87040; 93005; 93010; 94640; 96361; 96365; 96367; 96368; 96375; 99284; 99285; A9270; J0696; J1836; J2919; J7050; J7120; J7512; Q9967; J7620

== ENCOUNTER 2024-09-07 06:01 | Inpatient (IN) | payer MEDICARE, MEDICAID, OTHER ==
[2024-09-07] MEDS: methylPREDNISolone Sodium Succinate 125 MG/2 ML SDV IVPUSH ONE (06:15)
[2024-09-07] MEDS: Albuterol/Ipratropium 3.0-0.5 MG/3 ML Neb Soln NEB ONE (06:15)
[2024-09-07 06:16] LABS: BASOPHILS ABSOLUTE AUTO 0.04 K/uL (0.00-0.10); BASOPHILS PERCENT AUTO 0.5 % (0.1-1.3); EOSINOPHILS ABSOLUTE AUTO 0.15 K/uL (0.00-0.40); EOSINOPHILS PERCENT AUTO 1.7 % (0.0-5.4); HEMATOCRIT 37.1 % (34.3-46.0); HEMOGLOBIN 12.7 g/dL (11.2-15.5); IMMATURE GRAN ABSOLUTE AUTO 0.03 K/uL (0.00-0.23); IMMATURE GRAN PERCENT AUTO 0.3 % (0.0-0.7); LYMPHOCYTES ABSOLUTE AUTO 0.42 K/uL (0.8-3.3); LYMPHOCYTES PERCENT AUTO 4.8 % (11.4-47.7); MEAN CORPUSCULAR HEMOGLOBIN 32.4 pg (31.6-35.5); MEAN CORPUSCULAR HGB CONC 34.2 g/dL (31.6-35.5); MEAN CORPUSCULAR VOLUME 94.6 fL (81.4-99.0); MONOCYTES ABSOLUTE AUTO 0.98 K/uL (0.20-0.90); MONOCYTES PERCENT AUTO 11.3 % (3.3-12.6); NEUTROPHILS ABSOLUTE AUTO 7.08 K/uL (1.0-7.6); NEUTROPHILS PERCENT AUTO 81.4 % (40.0-78.1); PLATELET COUNT,PLT 400 K/uL (130-375); RED BLOOD CELL COUNT 3.92 M/uL (3.77-5.24); WHITE BLOOD CELL COUNT,WBC 8.7 K/uL (3.2-11.0)
[2024-09-07 06:18] LABS: BASE EXCESS ARTERIAL 0.3 mm/L; BICARBONATE,ARTERIAL 24.2 mmol/L (22.0-26.0); METHEMOGLOBIN 0.9 %; O2 SATURATION ARTERIAL 99.3 % (95.0-98.0); OXYHEMOGLOBIN 95.4 %; PCO2 ARTERIAL 38.7 mmHg (35.0-42.0); TOTAL HEMOGLOBIN 13.2 g/dL (12.0-16.0)
[2024-09-07] MEDS ORDERED: Azithromycin 500 MG in Sodium Chloride 0.9% 150 ML IV ONE (06:23)
[2024-09-07] MEDS: cefTRIAXone 1 GM in Sodium Chloride 0.9% 50 ML IV ONE (06:31)
[2024-09-07] MEDS: Sodium Chloride 0.9% 1,000 ML IV SCH (06:31)
[2024-09-07 06:36] LABS: A/G RATIO 0.7 (1.2-2.2); ALANINE AMINOTRANSFERASE,ALT 18 U/L (12-78); ALBUMIN 2.9 g/dL (3.4-5.0); ALKALINE PHOSPHATASE 73 U/L (46-116); ANION GAP 13.4 mmol/L (5.0-14.0); ASPARTATE AMNIOTRANSFERASE,AST 16 U/L (15-37); BILIRUBIN TOTAL 0.4 mg/dL (0.2-1.0); BLOOD UREA NITROGEN,BUN 9 mg/dL (7-18); CARBON DIOXIDE,CO2 25 mmol/L (21-32); CHLORIDE,CL 95 mmol/L (100-108); CREATININE 0.6 mg/dL (0.6-1.0); EST CRCL DRUG DOSING (CG) 59.09 mL/min; ESTIMATED GFR 94 mL/min (>60); GLUCOSE RANDOM 129 mg/dL (74-106); POTASSIUM,K 3.4 mmol/L (3.6-5.2); PROTEIN TOTAL,TP 6.8 g/dL (6.4-8.2); SODIUM,NA 130 mmol/L (140-148)
[2024-09-07] MEDS: Azithromycin 500 MG in Sodium Chloride 0.9% 250 ML IV ONE (07:20)
[2024-09-07] MEDS: Doxycycline 200 MG in Sodium Chloride 0.9% 250 ML IV ONE (07:31)
[2024-09-07] MEDS ORDERED: Acetaminophen/HYDROcodone 325-5 MG Tab PO PRN (07:36)
[2024-09-07] MEDS ORDERED: Albuterol 0.083% 2.5 MG/3 ML Neb Soln NEB PRN (07:36)
[2024-09-07] MEDS ORDERED: Ondansetron 4 MG Tab.DIS PO PRN (07:36)
[2024-09-07] MEDS ORDERED: Magnesium Hydroxide 400 MG/5 ML Susp 30 ML Cup PO PRN (07:36)
[2024-09-07] MEDS ORDERED: Sennosides/Docusate Sodium 50-8.6 MG Tab PO PRN (07:36)
[2024-09-07] MEDS ORDERED: LORazepam 2 MG/ML SDV IVPUSH PRN (07:36)
[2024-09-07] MEDS ORDERED: Clopidogrel 75 MG Tab PO SCH (09:00)
[2024-09-07] MEDS: Metoprolol Succinate 50 MG Tab.ER PO SCH (09:42)
[2024-09-07] MEDS: amLODIPine 5 MG Tab PO SCH (09:42)
[2024-09-07] MEDS ORDERED: Benzonatate 100 MG Cap PO PRN (10:48)
[2024-09-07] MEDS: Albuterol/Ipratropium 3.0-0.5 MG/3 ML Neb Soln NEB SCH (11:04)
[2024-09-07] MEDS: Potassium Chloride 20 MEQ Tab.ER PO ONE (12:23)
[2024-09-07] MEDS: Clopidogrel 75 MG Tab PO SCH (12:23)
[2024-09-07] MEDS: methylPREDNISolone Sodium Succinate 40 MG/1 ML SDV IVPUSH SCH (13:40)
[2024-09-07] MEDS: Doxycycline 100 MG in Sodium Chloride 0.9% 100 ML IV SCH (19:46)
[2024-09-07] MEDS: carBAMazepine 100 MG Tab ER PO SCH (21:16)
[2024-09-07] MEDS: atorvaSTATin 10 MG Tab PO SCH (21:17)
[2024-09-08] MEDS: cefTRIAXone 1 GM in Sodium Chloride 0.9% 50 ML IV SCH (05:47)
[2024-09-08 05:50] LABS: HEMATOCRIT 32.5 % (34.3-46.0); HEMOGLOBIN 10.8 g/dL (11.2-15.5); MEAN CORPUSCULAR HEMOGLOBIN 32.3 pg (31.6-35.5); MEAN CORPUSCULAR HGB CONC 33.2 g/dL (31.6-35.5); MEAN CORPUSCULAR VOLUME 97.3 fL (81.4-99.0); RED BLOOD CELL COUNT 3.34 M/uL (3.77-5.24); WHITE BLOOD CELL COUNT,WBC 6.9 K/uL (3.2-11.0)
[2024-09-08 06:05] LABS: ANION GAP 12.6 mmol/L (5.0-14.0); CALCIUM 8.5 mg/dL (8.5-10.1); CREATININE 0.5 mg/dL (0.6-1.0); EST CRCL DRUG DOSING (CG) 70.9 mL/min; POTASSIUM,K 4.6 mmol/L (3.6-5.2)
[2024-09-08] MEDS ORDERED: Albuterol 0.083% 2.5 MG/3 ML Neb Soln NEB PRN (09:35)
[2024-09-08] MEDS: Formoterol/Mometasone 200-5 MCG 8.8 GM Inhaler IH SCH (09:56)
[2024-09-08] MEDS: Nicotine 21 MG/24 Hr Patch TRDERM SCH (10:00)
[2024-09-08] MEDS: Acetaminophen 325 MG Tab PO PRN (19:42)
[2024-09-08] MEDS: Venlafaxine 75 MG Tab PO SCH (21:29)
[2024-09-08] MEDS: Doxycycline 100 MG Cap PO SCH (21:29)
[2024-09-08] MEDS: Ondansetron 4 MG/2 ML SDV IV PRN (22:26)
[2024-09-09] MEDS: predniSONE 20 MG Tab PO SCH (08:10)
[2024-09-10] MEDS: Cefdinir 300 MG Cap PO SCH (08:50)
[2024-09-10] MEDS ORDERED: Sodium Chloride 0.9% 10 ML Syringe IV PRN (10:22)
== END 2024-09-10 17:15 | disposition home health service (06) | DRG 193 ==
LOC: JP.ED 06:01 → JP.ICU 07:08 → JP.MS 09-08 11:44
PROVIDERS: ADMIT Hospitalist; ATTEND Internal Medicine
PROC: 5A0935A Assistance with Respiratory Ventilation, Less than 24 Consecutive Hours, High Flow/Velocity Cannula (ICD-10-PCS; principal; 2024-09-07)
PROC: 4A033R1 Measurement of Arterial Saturation, Peripheral, Percutaneous Approach (ICD-10-PCS; 2024-09-07)
PROC: 5A09357 Assistance with Respiratory Ventilation, Less than 24 Consecutive Hours, Continuous Positive Airway Pressure (ICD-10-PCS; 2024-09-07)
PROC: 5A09357 Assistance with Respiratory Ventilation, Less than 24 Consecutive Hours, Continuous Positive Airway Pressure (ICD-10-PCS; 2024-09-08)
DX: J13 Pneumonia due to Streptococcus pneumoniae (principal); J96.21 Acute and chronic respiratory failure with hypoxia; J44.1 Chronic obstructive pulmonary disease with (acute) exacerbation; J44.0 Chronic obstructive pulmonary disease with (acute) lower respiratory infection; I69.351 Hemiplegia and hemiparesis following cerebral infarction affecting right dominant side; Z66 Do not resuscitate; F17.210 Nicotine dependence, cigarettes, uncomplicated; I10 Essential (primary) hypertension; F41.9 Anxiety disorder, unspecified; M19.90 Unspecified osteoarthritis, unspecified site; Z96.649 Presence of unspecified artificial hip joint; H54.7 Unspecified visual loss; E78.5 Hyperlipidemia, unspecified; F32.A Depression, unspecified; Z88.8 Allergy status to other drugs, medicaments and biological substances; Z88.1 Allergy status to other antibiotic agents; Z79.51 Long term (current) use of inhaled steroids; Z79.899 Other long term (current) drug therapy; Z99.81 Dependence on supplemental oxygen; Z86.0100 Personal history of colon polyps, unspecified; Z87.81 Personal history of (healed) traumatic fracture; Z98.51 Tubal ligation status; Z98.890 Other specified postprocedural states; Z79.02 Long term (current) use of antithrombotics/antiplatelets; Z86.16 Personal history of COVID-19
CPT/HCPCS: 36415; 36600; 71045 ×2; 80053; 82803; 83605; 85025; 87040 ×2; 87428; 94640; 96365; 96375; 99285; A9270; J0696; J2919; J7030; 80048; 85027; 94660; 94667; 94668; 97110-GP; 97161-GP; 97165-GO; 97530-GP; 99223; 99232; 99238; J2405; J3490; J7512